=== PATIENT | female | born 1940 | race African-American/Black ===

== ENCOUNTER → 2016-12-02 | Outpatient (CLI) | payer MEDICARE, OTHER ==
[2016-12-02 17:27] LABS: Blood Urea Nitrogen 19 mg/dL (7-17); Non-African American GFR(MDRD) >60 (>60 ml/min/1.73 sqM)
== END | disposition home or self-care (01) ==
LOC: LABWHC1 16:39
PROVIDERS: ATTEND Internal Medicine
DX: Z01.812 Encounter for preprocedural laboratory examination (principal)
CPT/HCPCS: 36415; 82565; 84520

== ENCOUNTER 2016-12-07 11:13 | Emergency (ER) | payer MEDICARE, OTHER ==
[2016-12-07 11:27] VITALS: BP 190/85; PULSE 70; RESP 18; TEMP 97.9
--- NOTE | 2016-12-07 12:46 | ED ---
Fall HPI - General Chief Complaint: Fall Stated Complaint: LEFT SHOULDER INJURY FROM FALL Time Seen by Provider: 12/07/16 11:37 Source: patient, family Mode of arrival: ambulatory - History of Present Illness Initial Comments: Patient is a 76-year-old female with history of osteoarthritis and left rotator cuff repair presenting with left shoulder pain. Patient states she was sleeping on the couch and this morning rolled off falling on her left shoulder. Patient denies any head injury or loss of consciousness. Patient's daughter came over to pick her up for [employer] for which she was complaining of shoulder pain and brought her to the emergency room. Patient did not take anything for the pain prior to arrival. Pain is worse with palpation and movement. Pain is not present with rest. - Related Data Home Medications Medication Instructions Recorded Confirmed amLODIPine [Norvasc] 5 mg PO DAILY 03/21/14 12/07/16 Ergocalciferol (Vitamin D2) 50,000 unit PO WE 12/07/16 12/07/16 [Vitamin D2] Naproxen Sodium [Aleve] 220 mg PO Q12H PRN 12/07/16 12/07/16 Allergies Allergy/AdvReac Type Severity Reaction Status Date / Time cephalexin [Cephalexin] AdvReac Unknown Verified 12/07/16 12:24 iodine AdvReac Unknown Verified 12/07/16 12:24 levofloxacin [From Levaquin] AdvReac Dyspnea Verified 12/07/16 12:24 Penicillins AdvReac Dyspnea Verified 12/07/16 12:24 shellfish derived AdvReac Unknown Verified 12/07/16 12:24 Review of Systems ROS Statement: Those systems with pertinent positive or pertinent negative responses have been documented in the HPI. Constitutional: No fever and no chills. HENT: No congestion, no rhinorrhea and no sore throat. Eyes: No discharge and no redness. Respiratory: No cough and no shortness of breath. Cardiovascular: No chest pain and no palpitations. Gastrointestinal: No nausea, no vomiting, no abdominal pain and no diarrhea. Genitourinary: No dysuria and no hematuria. Musculoskeletal: No back pain and +arthralgias. Skin: No pallor and no rash. Neurological: No dizziness and No headaches. ROS Other: All systems not noted in ROS Statement are negative. Past Medical History Past Medical History: GERD/Reflux, Hyperlipidemia, Hypertension, Osteoarthritis (OA) Additional Past Medical History / Comment(s): lupus, anemia,. Headaches, arthritis History of Any Multi-Drug Resistant Organisms: None Reported Past Surgical History: Hysterectomy, Orthopedic Surgery Additional Past Surgical History / Comment(s): LT ROTATOR CUFF SX Past Anesthesia/Blood Transfusion Reactions: No Reported Reaction Additional Past Anesthesia/Blood Transfusion Reaction / Comment(s): CLAUSTERPHOBIA Past Psychological History: Anxiety Additional Psychological History / Comment(s): Miss Basilio is , she lives independently but has many family members who check on her, including her daughter. Remote history of tobacco use was noted.She has no recent animal exposures. She has no international travels. 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 Smoking Status: Former smoker Past Alcohol Use History: None Reported Additional Past Alcohol Use History / Comment(s): STARTED SMOKING WHEN A TEENAGER SMOKED 1-2 PPD QUIT 2004 Past Drug Use History: None Reported - Past Family History Father Family Medical History: Unable to Obtain Mother Family Medical History: Hypertension General Exam - General Exam Comments Initial Comments: Constitutional: Patient appears well-developed and well-nourished. No distress. Head: Normocephalic and atraumatic. Eyes: Conjunctivae and EOM are normal. Right eye exhibits no discharge. Left eye exhibits no discharge. No scleral icterus. Neck: Normal range of motion. Neck supple. Cardiovascular: Normal rate and regular rhythm. No murmur heard. Pulmonary/Chest: Effort normal and breath sounds normal. No respiratory distress. No wheezes. Abdominal: Soft. No distension. There is no tenderness. There is no rebound and no guarding. Musculoskeletal: Left shoulder anterior tenderness. Range of motion normal but has tenderness. No tenderness to scapula. No tenderness to upper arm or lower arm. Radial, median, ulnar nerve sensation and motor intact. Axillary sensation intact Distal pulses present. Neurological: Patient alert and oriented to person, place, and time. Skin: Skin is warm and dry. Not diaphoretic. Nursing notes and vitals reviewed. Course Vital Signs 12/07/16 11:23 Temperature 97.9 F Pulse Rate 70 Respiratory 18 Rate Blood Pressure 190/85 O2 Sat by Pulse 93 L Oximetry - Reevaluation(s) Reevaluation #1: 12/07/16 13:28 Family updated on results no fracture or dislocation of left shoulder. Patient not requesting anything for pain at this time. Medical Decision Making - Medical Decision Making Patient is a 76-year-old female with history of osteoarthritis including left shoulder rotator cuff repair presenting with left shoulder injury. Patient rolled off her couch earlier today and hit her left shoulder on the ground. No loss of consciousness or head injury. X-rays unremarkable for fracture or dislocation. X-ray does show pretty severe osteoarthritis. Family present and patient had a problem with muscle relaxants as well as narcotic pain medications. Patient would get loopy and fall. They are agreeable to doing Aleve and Tylenol at home. Prior to discharge, patient was resting comfortably in bed. Course of stay stable for outpatient management. Tolerable pain. Discussed physical exam and diagnostic tests with patient. Questions answered and patient is agreeable to discharge with close follow up with Primary Care Physician. Instructed to return to Emergency Department if symptoms worsen. Disposition Clinical Impression: Left shoulder pain Disposition: HOME SELF-CARE Condition: Good Instructions: Fall Prevention for Older Adults (ED), Shoulder Pain (ED) Referrals: Nicho Mahmood MD [Primary Care Provider] - 1-2 days
--- NOTE | 2016-12-07 12:54 | XR ---
Left shoulder HISTORY: Left shoulder pain, fall 3 views of the left shoulder No comparisons Left lung apex as visualized is normal. Bone mineralization is reduced. Joint spaces and alignment ar e maintained. IMPRESSION: No fracture or dislocation.
== END 2016-12-07 13:29 | disposition home or self-care (01) ==
LOC: EC 11:13
DX: M25.512 Pain in left shoulder (principal); W08.XXXA Fall from other furniture, initial encounter; M19.012 Primary osteoarthritis, left shoulder; I10 Essential (primary) hypertension; M32.9 Systemic lupus erythematosus, unspecified; Z79.899 Other long term (current) drug therapy; Z87.891 Personal history of nicotine dependence
CPT/HCPCS: 99284

== ENCOUNTER 2016-12-11 19:26 | Emergency (ER) | payer MEDICARE, OTHER ==
[2016-12-11 19:33] VITALS: RESP 18
--- NOTE | 2016-12-11 21:02 | XR ---
EXAMINATION TYPE: XR Hip Bilateral and AP pelvis DATE OF EXAM: 12/11/2016 8:53 PM COMPARISON: NONE HISTORY: Fell off a couch. Pain. Technique 5 views. FINDINGS: The pelvic ring is intact. Proximal femurs and hip joints are intact. There is mild acetabular spurri ng. Sacroiliac joints are normal. Hip joint spaces are fairly well-maintained. IMPRESSION: Negative pelvis and bilateral hip exam. No fracture.
--- NOTE | 2016-12-11 21:04 | XR ---
EXAMINATION TYPE: XR knee complete bilateral DATE OF EXAM: 12/11/2016 8:53 PM COMPARISON: NONE HISTORY: Fell off the couch. Pain. TECHNIQUE: 6 views FINDINGS: I see no fracture nor dislocation. There is no sign of knee joint effusion. Joint spaces ar e fairly normal. IMPRESSION: Negative bilateral knee exam.
[2016-12-11 22:17] VITALS: BP 194/89; PULSE 90; TEMP 97.7
--- NOTE | 2016-12-11 22:24 | ED ---
General Adult HPI - General Chief complaint: Extremity Injury, Lower Stated complaint: pelvic & leg pain Time Seen by Provider: 12/11/16 19:47 Source: patient, family Mode of arrival: wheelchair Limitations: no limitations - History of Present Illness Initial comments: 76-year-old -[place] female presented for evaluation of pubic bone pain since a fall on Thursday. She states that she was evaluated at this facility but the majority of her pain was in her left shoulder and no imaging was performed of the pelvis. Since that time she has had increasing pain to the [place] primarily in the pubic bone area that is caused her to ambulate less frequently due to the pain. Pain does not lateralize. There is no saddle anesthesia, lower extremity weakness, back pain, overflow incontinence, or bowel incontinence. - Related Data Home Medications Medication Instructions Recorded Confirmed amLODIPine [Norvasc] 5 mg PO DAILY 03/21/14 12/11/16 Ergocalciferol (Vitamin D2) 50,000 unit PO WE 12/07/16 12/11/16 [Vitamin D2] Naproxen Sodium [Aleve] 220 mg PO Q12H PRN 12/07/16 12/11/16 Previous Rx's Medication Instructions Recorded Ibuprofen [Motrin] 800 mg PO Q8HR PRN #20 tab 12/11/16 Allergies Allergy/AdvReac Type Severity Reaction Status Date / Time cephalexin [Cephalexin] AdvReac Unknown Verified 12/11/16 19:37 iodine AdvReac Unknown Verified 12/11/16 19:37 levofloxacin [From Levaquin] AdvReac Dyspnea Verified 12/11/16 19:37 Penicillins AdvReac Dyspnea Verified 12/11/16 19:37 shellfish derived AdvReac Unknown Verified 12/11/16 19:37 Review of Systems ROS Statement: Those systems with pertinent positive or pertinent negative responses have been documented in the HPI. ROS Other: All systems not noted in ROS Statement are negative. Constitutional: Denies: fever, chills Eyes: Denies: eye pain, eye discharge ENT: Denies: ear pain, throat pain Respiratory: Denies: cough, dyspnea Cardiovascular: Denies: chest pain, palpitations Endocrine: Reports: fatigue. Denies: polydipsia, polyuria Gastrointestinal: Denies: abdominal pain, nausea, vomiting Genitourinary: Denies: urgency, dysuria Musculoskeletal: Reports: other (Pubic bone pain with decreased ambulation). Denies: back pain Skin: Denies: rash, lesions Neurological: Denies: headache, weakness Psychiatric: Denies: anxiety, depression Past Medical History Past Medical History: GERD/Reflux, Hyperlipidemia, Hypertension, Osteoarthritis (OA) Additional Past Medical History / Comment(s): lupus, anemia,. Headaches, arthritis History of Any Multi-Drug Resistant Organisms: None Reported Past Surgical History: Hysterectomy, Orthopedic Surgery Additional Past Surgical History / Comment(s): LT ROTATOR CUFF SX Past Anesthesia/Blood Transfusion Reactions: No Reported Reaction Additional Past Anesthesia/Blood Transfusion Reaction / Comment(s): CLAUSTERPHOBIA Past Psychological History: Anxiety Additional Psychological History / Comment(s): Miss Basilio is , she lives independently but has many family members who check on her, including her daughter. Remote history of tobacco use was noted.She has no recent animal exposures. She has no international travels. 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 Smoking Status: Former smoker Past Alcohol Use History: None Reported Additional Past Alcohol Use History / Comment(s): STARTED SMOKING WHEN A TEENAGER SMOKED 1-2 PPD QUIT 2004 Past Drug Use History: None Reported - Past Family History Father Family Medical History: Unable to Obtain Mother Family Medical History: Hypertension General Exam Limitations: no limitations General appearance: alert, in no apparent distress Head exam: Present: atraumatic, normocephalic Eye exam: Present: normal appearance, EOMI ENT exam: Present: normal exam, normal oropharynx, mucous membranes moist Neck exam: Present: normal inspection. Absent: tenderness Respiratory exam: Present: normal lung sounds bilaterally. Absent: respiratory distress, wheezes Cardiovascular Exam: Present: regular rate, normal rhythm GI/Abdominal exam: Present: soft. Absent: distended, tenderness, guarding Rectal exam: Present: deferred Extremities exam: Present: normal inspection, full ROM, other (No tenderness to palpation on the pubic bones or pubic symphysis.) Back exam: Present: normal inspection, full ROM Neurological exam: Present: alert, oriented X3 Psychiatric exam: Present: normal affect, normal mood Skin exam: Present: warm, dry, intact Course Vital Signs 12/11/16 12/11/16 19:31 22:15 Temperature 98.7 F 97.7 F Pulse Rate 76 90 Respiratory 18 18 Rate Blood Pressure 179/77 194/89 O2 Sat by Pulse 97 97 Oximetry Medical Decision Making - Medical Decision Making 76-year-old -[place] female presented for evaluation of acute bone pain since a fall on Thursday. She states that she came to this facility for evaluation after the fall but the majority of her pain was in her left shoulder and no imaging was done the pelvis. Since that time she has had decreased in relation due to the pain other she remains able to bear weight. There is no saddle anesthesia, lower back pain, lower extremity weakness, urinary overflow incontinence, or bowel incontinence. On physical examination there is no tenderness to palpation and there is no asymmetry in leg length. Neuro exam is normal. Imaging is negative for any acute fractures. The patient was assisted out of the bed and observed ambulating in the hallway with minimal assistance. The patient and family were informed that she would be discharged with instructions to follow-up with her primary care physician's. She was also informed that she will be given a prescription for anti-inflammatories. She was further advised to return to this facility if her symptoms should worsen or persist. The patient acknowledged an understanding of this information and agreed with this plan of care. Disposition Clinical Impression: Hip pain, bilateral Disposition: HOME SELF-CARE Condition: Stable Instructions: Hip Contusion (ED) Additional Instructions: Please use medication as discussed. Please follow up with family doctor if symptoms have not improved over the next two days. Please return to the emergency room if your symptoms increase or worsen or for any other concerns. Prescriptions: Ibuprofen [Motrin] 800 mg PO Q8HR PRN #20 tab PRN Reason: Analgesia Referrals: Nicho Mahmood MD [Primary Care Provider] - 1-2 days Time of Disposition: 22:24
== END 2016-12-11 22:30 | disposition home or self-care (01) ==
LOC: EC 19:26
DX: M25.552 Pain in left hip (principal); M25.551 Pain in right hip; W19.XXXA Unspecified fall, initial encounter; I10 Essential (primary) hypertension; Z79.899 Other long term (current) drug therapy; Z88.8 Allergy status to other drugs, medicaments and biological substances; Z88.1 Allergy status to other antibiotic agents; Z88.0 Allergy status to penicillin; Z91.013 Allergy to seafood; Z87.891 Personal history of nicotine dependence
CPT/HCPCS: 73521; 99283

== ENCOUNTER 2018-01-06 18:13 | Emergency (ER) | payer MEDICARE, OTHER ==
--- NOTE | 2018-01-06 18:44 | ED ---
General Adult HPI - General Chief complaint: Extremity Injury, Lower Stated complaint: KNEE PAIN Time Seen by Provider: 01/06/18 18:23 Source: patient, RN notes reviewed Mode of arrival: ambulatory Limitations: no limitations - History of Present Illness Initial comments: Patient 77-year-old female who presents emergency room today with a chief complaint of a fall that occurred yesterday. She states she got tangled up fell down onto the right hip. Patient admits to some pain locally to the right hip area and also the lower back. She states worse with certain movements. She denies any other complaints or symptoms. States she has been able to ambulate. Denies any head injury or loss consciousness. Patient denies any recent fever, chills, shortness of breath, chest pain, abdominal pain, nausea or vomiting, numbness or tingling, headaches or visual changes, or any other complaints. - Related Data Home Medications Medication Instructions Recorded Confirmed amLODIPine [Norvasc] 5 mg PO DAILY 03/21/14 12/11/16 Ergocalciferol (Vitamin D2) 50,000 unit PO WE 12/07/16 12/11/16 [Vitamin D2] Naproxen Sodium [Aleve] 220 mg PO Q12H PRN 12/07/16 12/11/16 Previous Rx's Medication Instructions Recorded Ibuprofen [Motrin] 800 mg PO Q8HR PRN #20 tab 12/11/16 Allergies Allergy/AdvReac Type Severity Reaction Status Date / Time cephalexin [Cephalexin] AdvReac Unknown Verified 12/11/16 19:37 iodine AdvReac Unknown Verified 12/11/16 19:37 levofloxacin [From Levaquin] AdvReac Dyspnea Verified 12/11/16 19:37 Penicillins AdvReac Dyspnea Verified 12/11/16 19:37 shellfish derived AdvReac Unknown Verified 12/11/16 19:37 Review of Systems ROS Statement: Those systems with pertinent positive or pertinent negative responses have been documented in the HPI. ROS Other: All systems not noted in ROS Statement are negative. Past Medical History Past Medical History: GERD/Reflux, Hyperlipidemia, Hypertension, Osteoarthritis (OA) Additional Past Medical History / Comment(s): lupus, anemia,. Headaches, arthritis History of Any Multi-Drug Resistant Organisms: None Reported Past Surgical History: Hysterectomy, Orthopedic Surgery Additional Past Surgical History / Comment(s): LT ROTATOR CUFF SX Past Anesthesia/Blood Transfusion Reactions: No Reported Reaction Additional Past Anesthesia/Blood Transfusion Reaction / Comment(s): CLAUSTERPHOBIA Past Psychological History: Anxiety Smoking Status: Former smoker Past Alcohol Use History: None Reported Past Drug Use History: None Reported - Past Family History Father Family Medical History: Unable to Obtain Mother Family Medical History: Hypertension General Exam - General Exam Comments Initial Comments: General: The patient is awake and alert, in no distress, and does not appear acutely ill. Eye: Pupils are equal, round and reactive to light, extra-ocular movements are intact. No nystagmus. There is normal conjunctiva bilaterally. No signs of icterus. Ears, nose, mouth and throat: There are moist mucous membranes and no oral lesions. Neck: The neck is supple, there is no tenderness or JVD. Cardiovascular: There is a regular rate and rhythm. No murmur, rub or gallop is appreciated. Respiratory: Lungs are clear to auscultation, respirations are non-labored, breath sounds are equal. No wheezes, stridor, rales, or rhonchi. Musculoskeletal: Normal ROM. Patient is able ambulate. She shows good range of motion. Patient has normal appearance of thoracic and lumbar spine with no step-off. Mild tenderness lower lumbar. Mild tenderness over the lateral aspect of the right hip. Strength 5/5. Sensation intact. Pulses equal bilaterally 2+. Neurological: A&O x 3. CN II-XII intact, There are no obvious motor or sensory deficits. Coordination appears grossly intact. Speech is normal. Skin: Skin is warm and dry and no rashes or lesions are noted. Psychiatric: Cooperative, appropriate mood & affect, normal judgment. Limitations: no limitations Course Vital Signs 01/06/18 01/06/18 18:17 19:35 Temperature 96.5 F L Pulse Rate 63 97 Respiratory 16 18 Rate Blood Pressure 153/81 148/84 O2 Sat by Pulse 97 Oximetry Medical Decision Making - Medical Decision Making Patient x-rays reviewed showing no acute fracture dislocation. Patient is able to ambulate here in the emergency room will be discharged home advised follow- up in 7-10 days if symptoms persist for repeat x-ray. Disposition Clinical Impression: Fall, Acute low back pain, Hip pain, right Disposition: HOME SELF-CARE Condition: Good Instructions: Arthralgia (ED) Additional Instructions: Please follow-up the family doctor in the next 7-10 days if symptoms persist for repeat x-rays as discussed. Please return to emergency room for any other concerns. Referrals: Nicho Mahmood MD [Primary Care Provider] - 1-2 days Time of Disposition: 19:41
--- NOTE | 2018-01-06 19:34 | XR ---
PROCEDURE: XR Hip Limited RT 2 views DATE AND TIME: 01/06/2018 6:54 PM REFERRING PHYSICIAN: Adolph Phoenix CLINICAL INDICATION: PHH, Pain TECHNIQUE: Coned AP and frog-leg lateral. COMPARISON: 12/11/2016 FINDINGS: There is no fracture or malalignment. The soft tissues are unremarkable. IMPRESSION: NO ACUTE PROCESS.
--- NOTE | 2018-01-06 19:35 | XR ---
PROCEDURE: XR lumbar spine - 3V DATE AND TIME: 01/06/2018 6:54 PM REFERRING PHYSICIAN: Adolph Phoenix CLINICAL INDICATION: PHH, Pain TECHNIQUE: Department protocol. COMPARISON: 02/12/2016 FINDINGS: There is no fracture or malalignment. Moderate multilevel spondylosis changes are appreciat ed. The soft tissues are unremarkable. IMPRESSION: NO ACUTE PROCESS.
[2018-01-06 19:36] VITALS: BP 148/84; PULSE 97; RESP 18
[2018-01-06 19:53] VITALS: TEMP 98.6
== END 2018-01-06 19:53 | disposition home or self-care (01) ==
LOC: EC 18:13
DX: M54.5 Low back pain (principal); M25.551 Pain in right hip; I10 Essential (primary) hypertension; M19.90 Unspecified osteoarthritis, unspecified site; Z87.891 Personal history of nicotine dependence; Z79.899 Other long term (current) drug therapy; Z88.1 Allergy status to other antibiotic agents; Z91.048 Other nonmedicinal substance allergy status; Z88.0 Allergy status to penicillin; Z91.013 Allergy to seafood; W01.0XXA Fall on same level from slipping, tripping and stumbling without subsequent striking against object, initial encounter; Y92.009 Unspecified place in unspecified non-institutional (private) residence as the place of occurrence of the external cause
CPT/HCPCS: 72100; 73501; 99283

== ENCOUNTER 2018-04-08 19:44 | Emergency (ER) | payer MEDICARE, OTHER ==
[2018-04-08] MEDS ORDERED: ONDANSETRON 4 MG/2 ML VIAL IVP STA (20:37)
[2018-04-08] MEDS ORDERED: PANTOPRAZOLE 40 MG/10 ML VIAL IVP STA (20:37)
--- NOTE | 2018-04-08 20:43 | ED ---
General Adult HPI - General Chief complaint: Abdominal Pain Stated complaint: Abdominal pain Time Seen by Provider: 04/08/18 20:08 Source: patient, family, EMS, RN notes reviewed Mode of arrival: EMS Limitations: altered mental status - History of Present Illness Initial comments: Patient is a pleasant 77-year-old female presenting to the emergency department [facility] and family believe she is not adjusting well. Accuracy of history is unclear. Patient states she does have some abdominal discomfort. Symptoms have been present for close to a year however may be worse over the past week. Patient believes she may have been vomiting some blood or had some blood with bowel movements. Patient had an episode today where she became very nauseated and felt like she was going to pass out. Patient denies ever losing consciousness. Patient denies chest pain. Patient does admit to having some shortness of breath. Patient is unclear how long this has gone on for. Patient does have a history of lupus and is on Plaquenil. Family states patient has been on Plaquenil longer than normal and questions if this could be causing her abdominal discomfort. - Related Data Home Medications Medication Instructions Recorded Confirmed amLODIPine [Norvasc] 5 mg PO DAILY 03/21/14 04/08/18 Bisacodyl [Dulcolax] 10 mg RECTAL DAILY PRN 04/08/18 04/08/18 Donepezil [Aricept] 10 mg PO HS 04/08/18 04/08/18 Ensure Clear 1 can PO W/BRKFST 04/08/18 04/08/18 Hydroxychloroquine Sulfate 200 mg PO BID@0800,1700 04/08/18 04/08/18 [Plaquenil] Magnesium Hydroxide [Milk of 2,400 mg PO DAILY PRN 04/08/18 04/08/18 Magnesia Concentrate] Multivitamins, Thera [Multivitamin 1 tab PO DAILY 04/08/18 04/08/18 (formulary)] Na Phos,M-B/Na Phos,Di-Ba [Fleet 133 ml RECTAL ONCE PRN 04/08/18 04/08/18 Adult] Omeprazole [PriLOSEC] 20 mg PO DAILY PRN 04/08/18 04/08/18 Allergies Allergy/AdvReac Type Severity Reaction Status Date / Time cephalexin [Cephalexin] AdvReac Unknown Verified 12/11/16 19:37 doxycycline AdvReac Unknown Verified 04/08/18 19:59 iodine AdvReac Unknown Verified 12/11/16 19:37 levofloxacin [From Levaquin] AdvReac Dyspnea Verified 12/11/16 19:37 Penicillins AdvReac Dyspnea Verified 12/11/16 19:37 shellfish derived AdvReac Unknown Verified 12/11/16 19:37 Review of Systems ROS Statement: Those systems with pertinent positive or pertinent negative responses have been documented in the HPI. ROS Other: All systems not noted in ROS Statement are negative. Constitutional: Denies: fever Eyes: Denies: eye pain ENT: Denies: ear pain Respiratory: Reports: dyspnea Cardiovascular: Denies: chest pain Endocrine: Reports: fatigue Gastrointestinal: Reports: abdominal pain, nausea, vomiting Genitourinary: Denies: dysuria Skin: Denies: lesions Neurological: Denies: headache Past Medical History Past Medical History: GERD/Reflux, Hyperlipidemia, Hypertension, Osteoarthritis (OA) Additional Past Medical History / Comment(s): lupus, anemia,. Headaches, arthritis History of Any Multi-Drug Resistant Organisms: None Reported Past Surgical History: Hysterectomy, Orthopedic Surgery Additional Past Surgical History / Comment(s): LT ROTATOR CUFF SX Past Anesthesia/Blood Transfusion Reactions: No Reported Reaction Additional Past Anesthesia/Blood Transfusion Reaction / Comment(s): CLAUSTERPHOBIA Past Psychological History: Anxiety Smoking Status: Former smoker Past Alcohol Use History: None Reported Past Drug Use History: None Reported - Past Family History Father Family Medical History: Unable to Obtain Mother Family Medical History: Hypertension General Exam Limitations: altered mental status General appearance: alert, in no apparent distress Head exam: Present: atraumatic Eye exam: Present: normal appearance, PERRL, EOMI ENT exam: Present: normal oropharynx Neck exam: Present: normal inspection Respiratory exam: Present: normal lung sounds bilaterally. Absent: respiratory distress, wheezes Cardiovascular Exam: Present: tachycardia GI/Abdominal exam: Present: soft. Absent: tenderness Extremities exam: Present: normal inspection. Absent: pedal edema, calf tenderness Neurological exam: Present: alert, CN II-XII intact. Absent: motor sensory deficit Expanded Neurological exam: Present: protecting the airway Speech: Present: fluid speech Cranial nerves: EOM's Intact: Normal Motor strength exam: RUE: 5, LUE: 5, RLE: 5, LLE: 5 Eye Response: (4) open spontaneously Motor Response: (6) obeys commands Verbal Response: (5) oriented Psychiatric exam: Present: normal affect, normal mood Skin exam: Present: normal color Course Vital Signs 04/08/18 04/08/18 04/08/18 19:57 21:38 23:39 Temperature 97.0 F L 99.2 F Pulse Rate 112 H 105 H 103 H Respiratory 24 18 20 Rate Blood Pressure 172/84 148/67 155/73 O2 Sat by Pulse 100 100 100 Oximetry EKG Findings - EKG Comments: EKG Findings:: Sinus cardia 110. OR 162. QRS 98. QT 332. QTC 449. Normal axis. Incomplete right bundle-branch block. Nonspecific ST-T. Motion artifact is present. Medical Decision Making - Medical Decision Making Patient reevaluated and resting comfortably in bed. Case was earlier discussed with Dr. Mccabe who did not feel patient would necessitate admission. Family is comfortable with discharge home. Family and patient are updated on results and need for follow-up. - Lab Data Result diagrams: 04/08/18 20:50 04/08/18 20:50 Lab Results 04/08/18 04/08/18 04/08/18 Range/Units 20:50 20:50 20:50 WBC 8.7 (3.8-10.6) k/uL RBC 4.64 (3.80-5.40) m/uL Hgb 12.2 (11.4-16.0) gm/dL Hct 38.3 (34.0-46.0) % MCV 82.4 (80.0-100.0) fL MCH 26.4 (25.0-35.0) pg MCHC 32.0 (31.0-37.0) g/dL RDW 14.7 (11.5-15.5) % Plt Count 203 (150-450) k/uL Neutrophils % 81 % Lymphocytes % 9 % Monocytes % 7 % Eosinophils % 0 % Basophils % 0 % Neutrophils # 7.0 (1.3-7.7) k/uL Lymphocytes # 0.8 L (1.0-4.8) k/uL Monocytes # 0.6 (0-1.0) k/uL Eosinophils # 0.0 (0-0.7) k/uL Basophils # 0.0 (0-0.2) k/uL PT (9.0-12.0) sec INR (<1.2) APTT (22.0-30.0) sec D-Dimer (<0.60) mg/L FEU Sodium 141 (137-145) mmol/L Potassium 3.9 (3.5-5.1) mmol/L Chloride 105 (98-107) mmol/L Carbon Dioxide 22 (22-30) mmol/L Anion Gap 14 mmol/L BUN 20 H (7-17) mg/dL Creatinine 0.72 (0.52-1.04) mg/dL Est GFR (CKD-EPI)AfAm >90 (>60 ml/min/1.73 sqM) Est GFR (CKD-EPI)NonAf 82 (>60 ml/min/1.73 sqM) Glucose 126 H (74-99) mg/dL Calcium 9.2 (8.4-10.2) mg/dL Total Bilirubin 0.7 (0.2-1.3) mg/dL AST 26 (14-36) U/L ALT 26 (9-52) U/L Alkaline Phosphatase 83 (38-126) U/L Total Creatine Kinase 154 H (30-135) U/L CK-MB (CK-2) 1.4 (0.0-2.4) ng/mL CK-MB (CK-2) Rel Index 0.9 Troponin I <0.012 (0.000-0.034) ng/mL Total Protein 7.5 (6.3-8.2) g/dL Albumin 4.1 (3.5-5.0) g/dL Amylase 87 (30-110) U/L Lipase 92 (23-300) U/L Urine Color Urine Appearance (Clear) Urine pH (5.0-8.0) Ur Specific [place] (1.001-1.035) Urine Protein (Negative) Urine Glucose (UA) (Negative) Urine Ketones (Negative) Urine Blood (Negative) Urine Nitrite (Negative) Urine Bilirubin (Negative) Urine Urobilinogen (<2.0) mg/dL Ur Leukocyte Esterase (Negative) Stool Occult Blood (Negative) 04/08/18 04/08/18 04/08/18 Range/Units 20:50 21:03 21:51 WBC (3.8-10.6) k/uL RBC (3.80-5.40) m/uL Hgb (11.4-16.0) gm/dL Hct (34.0-46.0) % MCV (80.0-100.0) fL MCH (25.0-35.0) pg MCHC (31.0-37.0) g/dL RDW (11.5-15.5) % Plt Count (150-450) k/uL Neutrophils % % Lymphocytes % % Monocytes % % Eosinophils % % Basophils % % Neutrophils # (1.3-7.7) k/uL Lymphocytes # (1.0-4.8) k/uL Monocytes # (0-1.0) k/uL Eosinophils # (0-0.7) k/uL Basophils # (0-0.2) k/uL PT 10.7 (9.0-12.0) sec INR 1.1 (<1.2) APTT 20.7 L (22.0-30.0) sec D-Dimer 0.36 (<0.60) mg/L FEU Sodium (137-145) mmol/L Potassium (3.5-5.1) mmol/L Chloride (98-107) mmol/L Carbon Dioxide (22-30) mmol/L Anion Gap mmol/L BUN (7-17) mg/dL Creatinine (0.52-1.04) mg/dL Est GFR (CKD-EPI)AfAm (>60 ml/min/1.73 sqM) Est GFR (CKD-EPI)NonAf (>60 ml/min/1.73 sqM) Glucose (74-99) mg/dL Calcium (8.4-10.2) mg/dL Total Bilirubin (0.2-1.3) mg/dL AST (14-36) U/L ALT (9-52) U/L Alkaline Phosphatase (38-126) U/L Total Creatine Kinase (30-135) U/L CK-MB (CK-2) (0.0-2.4) ng/mL CK-MB (CK-2) Rel Index Troponin I (0.000-0.034) ng/mL Total Protein (6.3-8.2) g/dL Albumin (3.5-5.0) g/dL Amylase (30-110) U/L Lipase (23-300) U/L Urine Color Yellow Urine Appearance Clear (Clear) Urine pH 5.5 (5.0-8.0) Ur Specific [place] 1.013 (1.001-1.035) Urine Protein Trace H (Negative) Urine Glucose (UA) Trace H (Negative) Urine Ketones 2+ H (Negative) Urine Blood Negative (Negative) Urine Nitrite Negative (Negative) Urine Bilirubin Negative (Negative) Urine Urobilinogen <2.0 (<2.0) mg/dL Ur Leukocyte Esterase Negative (Negative) Stool Occult Blood Negative (Negative) - Radiology Data Radiology results: report reviewed (Computed tomography scan of the abdomen pelvis shows no acute abnormality. Slight prominence of the pancreatic duct probably related to old inflammatory disease.), image reviewed (KUB shows no acute process. Chest x-ray shows COPD and pulmonary fibrosis) Disposition Clinical Impression: Near syncope Disposition: HOME SELF-CARE Condition: Stable Instructions: Near Syncope (ED) Additional Instructions: Please follow-up with primary care physician in the next day or 2 for recheck. Return for passing out, bleeding, abdominal pain, breathing problems, worsening symptoms or other concerns. Is patient prescribed a controlled substance at d/c from ED?: No Referrals: Nicho Mahmood MD [Primary Care Provider] - 1-2 days Time of Disposition: 23:50
[2018-04-08 21:15] LABS: Basophils % (A) 0 %; Eosinophils % (A) 0 %; HCT 38.3 % (34.0-46.0); HGB 12.2 gm/dL (11.4-16.0); Lymphocytes # (A) 0.8 k/uL (1.0-4.8); Lymphocytes % (A) 9 %; MCH 26.4 pg (25.0-35.0); MCV 82.4 fL (80.0-100.0); Monocytes # (A) 0.6 k/uL (0-1.0); Monocytes % (A) 7 %; Neutrophils % (A) 81 %; Platelet Count 203 k/uL (150-450); RBC 4.64 m/uL (3.80-5.40); RDW 14.7 % (11.5-15.5); WBC 8.7 k/uL (3.8-10.6)
[2018-04-08 21:16] LABS: ALT 26 U/L (9-52); AST 26 U/L (14-36); Albumin 4.1 g/dL (3.5-5.0); Alkaline Phosphatase 83 U/L (38-126); Amylase 87 U/L (30-110); Anion Gap 14 mmol/L; Blood Urea Nitrogen 20 mg/dL (7-17); Calcium 9.2 mg/dL (8.4-10.2); Carbon Dioxide 22 mmol/L (22-30); Chloride 105 mmol/L (98-107); Glucose 126 mg/dL (74-99); Lipase 92 U/L (23-300); Potassium 3.9 mmol/L (3.5-5.1); Sodium 141 mmol/L (137-145); Total Bilirubin 0.7 mg/dL (0.2-1.3); Total Protein 7.5 g/dL (6.3-8.2)
--- NOTE | 2018-04-08 21:28 | XR ---
EXAMINATION TYPE: XR chest 2V DATE OF EXAM: 04/08/2018 COMPARISON: 03/28/2014 HISTORY: Syncope TECHNIQUE: Frontal and lateral views of the chest are obtained. FINDINGS: There is some coarsening of interstitial markings. There is no heart failure nor confluent pneumonic infiltrate. There are chest leads. Thoracic aorta is atheromatous. There is flattening of the diaphragm. IMPRESSION: COPD and pulmonary fibrosis. No change.
[2018-04-08 21:29] LABS: D-Dimer 0.36 mg/L FEU (<0.60); INR 1.1 (<1.2); Prothrombin Time 10.7 sec (9.0-12.0)
--- NOTE | 2018-04-08 21:29 | XR ---
EXAMINATION TYPE: XR KUB DATE OF EXAM: 04/08/2018 COMPARISON: NONE HISTORY: Abdominal pain TECHNIQUE: Supine and upright views FINDINGS: There is no sign of intestinal obstruction or pneumoperitoneum. Fecal pattern is normal. Jasmin ng bases are clear. There are no definite pathologic calcifications over the kidneys. There is some c alcified granulomata in the spleen. There are some right upper quadrant calcifications. IMPRESSION: Nonacute abdomen. No definite renal calculus.
[2018-04-08 21:31] LABS: Creatine Kinase 154 U/L (30-135); Partial Thromboplastin Time 20.7 sec (22.0-30.0)
[2018-04-08] MEDS ORDERED: diphenhydrAMINE 50 MG/ML 1 ML VIAL IVP STA (21:41)
[2018-04-08] MEDS ORDERED: FAMOTIDINE 20 MG/2 ML VIAL IV STA (21:41)
[2018-04-08] MEDS ORDERED: methylPREDNISolone SOD SUCCI 125 MG/2 ML VIAL IV STA (21:41)
[2018-04-08 21:45] LABS: Creatine Kinase MB 1.4 ng/mL (0.0-2.4); Troponin I <0.012 ng/mL (0.000-0.034)
[2018-04-08 22:02] LABS: Appearance,Urine Clear (Clear); Bilirubin,Urine Negative (Negative); Blood,Urine Negative (Negative); Color,Urine Yellow; Glucose,Urine (UA) Trace (Negative); Ketones,Urine 2+ (Negative); Leukocyte Esterase,Urine Negative (Negative); Nitrite,Urine Negative (Negative); PH, Urine 5.5 (5.0-8.0); Protein,Urine Trace (Negative); Specific Gravity,Urine 1.013 (1.001-1.035); Urobilinogen,Urine <2.0 mg/dL (<2.0)
--- NOTE | 2018-04-08 23:09 | CT ---
EXAMINATION TYPE: CT abdomen pelvis w con DATE OF EXAM: 04/08/2018 COMPARISON: NONE HISTORY: Epigastric pain. Poor historian. CT DLP: 536 mGycm Automated exposure control for dose reduction was used. TECHNIQUE: Helical acquisition of images was performed from the lung bases through the pelvis. CONTRAST: Performed without Oral Contrast and with IV Contrast, patient injected with 80ml mL of Isovue 300. FINDINGS: Lung bases are clear of consolidation. There is mild interstitial density at the lung bases. There is no pleural effusion. Abdominal aorta is atheromatous. There is no pericardial effusion. There are numerous calcified splenic granulomata. There are calcifi ed small hepatic granulomata. Bile ducts are not dilated. Gallbladder appears normal. There is no tony creatic mass. There is slight prominence of the pancreatic duct. There is no adrenal mass. Kidneys show satisfactory contrast opacification. There is no hydronephrosi s. Ureters are not dilated. Abdominal aorta is atheromatous. There is no retroperitoneal adenopathy. Bladder distends smoothly. I see no intestinal wall thickening. There are no dilated loops. There is no ascites. There is no evidence of a pelvic mass. Uterus is retroverted. Lumbar spine is intact. Danuta endix is not seen. There is no sign of appendicitis. IMPRESSION: NO SIGN OF ACUTE ABDOMEN AND PELVIS. HEALED GRANULOMATOUS DISEASE. SLIGHT PROMINENCE OF THE PANCREATIC DUCT PROBABLY RELATES TO OLD INFLAMMATORY DISEASE. ATHEROSCLEROTI C VASCULAR DISEASE.
[2018-04-08 23:39] VITALS: RESP 20; TEMP 99.2
[2018-04-09 00:22] VITALS: BP 148/68; PULSE 110
== END 2018-04-09 00:21 | disposition home or self-care (01) ==
LOC: EC 19:44
DX: R55 Syncope and collapse (principal); R10.9 Unspecified abdominal pain; R06.02 Shortness of breath; K21.9 Gastro-esophageal reflux disease without esophagitis; I10 Essential (primary) hypertension; Z87.891 Personal history of nicotine dependence; Z79.899 Other long term (current) drug therapy; Z88.1 Allergy status to other antibiotic agents; Z91.048 Other nonmedicinal substance allergy status; Z88.0 Allergy status to penicillin; Z91.013 Allergy to seafood
CPT/HCPCS: 36415; 93005; 85379; 80053; 82150; 82550; 82553; 83690; 84484; 85025; 85610; 85730; 82272; 81003; 71046; 74018; 74177; 99285; 96374; 96375 ×4; J1200; J2930; J2405; C9113; Q9967

== ENCOUNTER 2020-05-29 13:09 | Inpatient (IN) | payer MEDICARE, OTHER ==
[2020-05-29] MEDS ORDERED: FAMOTIDINE 20 MG/2 ML VIAL IV STA (13:20)
[2020-05-29] MEDS ORDERED: methylPREDNISolone SOD SUCCI 125 MG/2 ML VIAL IV STA (13:20)
[2020-05-29] MEDS ORDERED: diphenhydrAMINE 50 MG/ML 1 ML VIAL IVP STA (13:20)
--- NOTE | 2020-05-29 13:25 | ED ---
Altered Mental Status HPI - General Stated Complaint: stroke symptoms Time Seen by Provider: 05/29/20 13:40 - History of Present Illness Initial Comments: Patient is a 79 year old female with past history of vascular dementia, lupus, rheumatoid arthritis presents to the emergency room with reported altered mental status. She is a transfer from [facility]. Report from EMS was that the patient was her normal self this morning. She is able to feed herself. Last known well was around 10:30. The nurse then entered the patient's room to past medications around 1:00 and found her altered. They thought that the patient had weakness on her left side as well as facial droop. The patient was only alert to able to the light. No history of CVA. The remainder of the HPI was limited from EMS. Daughter does arrive to her facility and further history is obtained from her. She states that her mother has been significantly declining over the past month. She had acute kidney injury diagnosed within the past week. IV was established the patient was given some fluids. She has had very poor by mouth intake and has stopped ambulating on her own. Upon hospital arrival the patient has full use of her upper extremity. Does have weakness in her bilateral lower externally. She is alert and oriented 3. No recent illnesses. No fevers. Patient denies any chest pain or shortness of breath. No numbness, tingling or weakness in her extremity. Remainder of HPI is limited because patient's current state - Related Data Home Medications Medication Instructions Recorded Confirmed Donepezil [Aricept] 10 mg PO DAILY@0800 04/08/18 05/29/20 Ensure Clear 1 can PO BID 04/08/18 05/29/20 Magnesium Hydroxide [Milk of 7,200 mg PO Q48H PRN 04/08/18 05/29/20 Magnesia Concentrate] Multivitamins, Thera [Multivitamin 1 tab PO DAILY@0800 04/08/18 05/29/20 (formulary)] Na Phos,M-B/Na Phos,Di-Ba [Fleet 133 ml RECTAL ONCE PRN 04/08/18 05/29/20 Adult] bisacodyL [Dulcolax] 10 mg RECTAL DAILY PRN 04/08/18 05/29/20 Acetaminophen Tab [Tylenol] 650 mg PO Q4H PRN 05/29/20 05/29/20 Calcium Carbonate [Tums] 500 mg PO BID PRN 05/29/20 05/29/20 Cholecalciferol [Vitamin D3 (25 2,000 unit PO DAILY@0805/29/20 05/29/20 Mcg = 1000 Iu)] Famotidine [Pepcid] 20 mg PO DAILY@0800 05/29/20 05/29/20 Loperamide HCl [Imodium A-D] 2 - 4 mg PO TID PRN MDD 4 TABS 05/29/20 05/29/20 Losartan/Hydrochlorothiazide 1 tab PO DAILY@79905/29/20 05/29/20 [Losartan-Hctz 100-12.5 mg Tab] Menthol [Biofreeze] 1 applic TOPICAL Q8H PRN 05/29/20 05/29/20 Metoclopramide HCl [Reglan] 5 mg PO AC-TID 05/29/20 05/29/20 Mirtazapine 7.5 mg PO HS@2100 05/29/20 05/29/20 Potassium Chloride [Klor-Con 10] 10 meq PO DAILY@1700 05/29/20 05/29/20 Sodium Chloride [Saline Nasal 2 spray EA NOSTRIL 05/29/20 05/29/20 [place]] TID@0800,1200,1700 carvediloL [Coreg] 6.25 mg PO BID@0800,1700 05/29/20 05/29/20 guaiFENesin [guaiFENesin Oral 200 mg PO Q4H PRN 05/29/20 05/29/20 Solution] Allergies Allergy/AdvReac Type Severity Reaction Status Date / Time cephalexin [Cephalexin] Allergy Unknown Verified 05/29/20 13:54 doxycycline Allergy Unknown Verified 05/29/20 13:54 iodine Allergy Unknown Verified 05/29/20 13:54 shellfish derived Allergy Unknown Verified 05/29/20 13:54 levofloxacin [From Levaquin] AdvReac Dyspnea Verified 05/29/20 13:54 Penicillins AdvReac Dyspnea Verified 05/29/20 13:54 monohydrate Allergy Unknown Uncoded 05/29/20 13:54 Review of Systems ROS Statement: Those systems with pertinent positive or pertinent negative responses have been documented in the HPI. ROS Other: All systems not noted in ROS Statement are negative. Past Medical History Past Medical History: GERD/Reflux, Hyperlipidemia, Hypertension, Osteoarthritis (OA) Additional Past Medical History / Comment(s): lupus, anemia,. Headaches, arthritis History of Any Multi-Drug Resistant Organisms: None Reported Past Surgical History: Hysterectomy, Orthopedic Surgery Additional Past Surgical History / Comment(s): LT ROTATOR CUFF SX Past Anesthesia/Blood Transfusion Reactions: No Reported Reaction Additional Past Anesthesia/Blood Transfusion Reaction / Comment(s): CLAUSTERPHOBIA Past Psychological History: Anxiety Past Alcohol Use History: None Reported Past Drug Use History: None Reported - Past Family History Father Family Medical History: Unable to Obtain Mother Family Medical History: Hypertension Brother(s) Family Medical History: Cancer (she had 4 brothers one of pancraetic cancer , one of prostate cancer, one of MT and one is alive.), Myocardial Infarction (MT) Sister(s) Family Medical History: Cancer (4 sisters one from liver disease, one from bleeding AVF fistula with ESRD on HD, the other sister is at [facility] with CVA and brain aneurysm.) Daughter(s) Family Medical History: No Reported History (2 daughters no major health issues.) Son(s) Family Medical History: No Reported History (one son with hyperlipidemia.) General Exam Limitations: altered mental status General appearance: lethargic Head exam: Present: atraumatic, normocephalic, normal inspection Eye exam: Present: normal appearance, PERRL, EOMI. Absent: scleral icterus, conjunctival injection, periorbital swelling ENT exam: Present: mucous membranes dry, other (slight right sided facial droop) Neck exam: Present: normal inspection. Absent: tenderness, meningismus, lymphadenopathy Respiratory exam: Present: normal lung sounds bilaterally. Absent: respiratory distress, wheezes, rales, rhonchi, stridor Cardiovascular Exam: Present: normal rhythm, bradycardia GI/Abdominal exam: Present: soft, normal bowel sounds. Absent: distended, tenderness, guarding, rebound, rigid Extremities exam: Present: other (4/5 strength bilateral lower extremities. 5/5 strength bilateral upper extremities) Neurological exam: Present: alert, other (oriented x2. Follow commands. tongue is midline. Speech is soft.) Psychiatric exam: Present: flat affect Course Vital Signs 05/29/20 05/29/20 05/29/20 13:15 13:30 13:45 Temperature 98.1 F Pulse Rate 56 L 55 L 67 Pulse Rate [ Pulse Oximetery ] Respiratory 18 18 18 Rate Blood Pressure 125/78 180/89 151/82 Blood Pressure [Left Arm] O2 Sat by Pulse 96 100 100 Oximetry 05/29/20 05/29/20 05/29/20 14:15 14:45 16:18 Temperature 98.2 F Pulse Rate 51 L 54 L 58 L Pulse Rate [ Pulse Oximetery ] Respiratory 18 18 18 Rate Blood Pressure 175/70 195/96 185/84 Blood Pressure [Left Arm] O2 Sat by Pulse 98 100 100 Oximetry 05/29/20 05/29/20 17:44 18:30 Temperature 98.4 F 98.0 F Pulse Rate 59 L Pulse Rate [ 61 Pulse Oximetery ] Respiratory 16 18 Rate Blood Pressure 183/76 Blood Pressure 142/65 [Left Arm] O2 Sat by Pulse 97 100 Oximetry - Reevaluation(s) Reevaluation #1: Spoke with Dr. Wylie who will review images 05/29/20 13:28 Reevaluation #2: Spoke with patient's family who is refusing tPA 05/29/20 13:48 Medical Decision Making - Medical Decision Making Upon arrival patient is placed into trauma bay 1. A thorough history and physical exam was performed. NIH stroke the patient has a score of 9. Code stroke is activated and the patient sent for CT as well as CT angiography. Patient does improve over her course while she is hospitalized. Discussed the case with the family and they do not want TPA at this time. Lab studies demonstrated an elevated ck. Patient's was given a 500 mL bolus and started on normal saline. She'll be admitted to the hospital here discuss case with Dr. Mahmood agreed to hospitalization - Lab Data Result diagrams: 05/30/20 06:40 05/30/20 06:06 Lab Results 05/29/20 05/29/20 05/29/20 Range/Units 13:27 13:27 13:27 WBC 5.2 (3.8-10.6) k/uL RBC 4.09 (3.80-5.40) m/uL Hgb 10.7 L (11.4-16.0) gm/dL Hct 33.6 L (34.0-46.0) % MCV 82.0 (80.0-100.0) fL MCH 26.1 (25.0-35.0) pg MCHC 31.8 (31.0-37.0) g/dL RDW 14.9 (11.5-15.5) % Plt Count 172 (150-450) k/uL Neutrophils % 70 % Lymphocytes % 15 % Monocytes % 9 % Eosinophils % 3 % Basophils % 1 % Neutrophils # 3.7 (1.3-7.7) k/uL Lymphocytes # 0.8 L (1.0-4.8) k/uL Monocytes # 0.5 (0-1.0) k/uL Eosinophils # 0.1 (0-0.7) k/uL Basophils # 0.0 (0-0.2) k/uL Hypochromasia Slight PT 10.5 (9.0-12.0) sec INR 1.0 (<1.2) APTT 22.3 (22.0-30.0) sec Sodium (137-145) mmol/L Potassium (3.5-5.1) mmol/L Chloride (98-107) mmol/L Carbon Dioxide (22-30) mmol/L Anion Gap mmol/L BUN (7-17) mg/dL Creatinine (0.52-1.04) mg/dL Est GFR (CKD-EPI)AfAm (>60 ml/min/1.73 sqM) Est GFR (CKD-EPI)NonAf (>60 ml/min/1.73 sqM) Glucose (74-99) mg/dL Plasma Lactic Acid Judd 1.2 (0.7-2.0) mmol/L Calcium (8.4-10.2) mg/dL Total Bilirubin (0.2-1.3) mg/dL AST (14-36) U/L ALT (4-34) U/L Alkaline Phosphatase (38-126) U/L Ammonia <9 (<30) umol/L Creatine Kinase (30-135) U/L Troponin I (0.000-0.034) ng/mL Total Protein (6.3-8.2) g/dL Albumin (3.5-5.0) g/dL TSH (0.465-4.680) mIU/L Urine Color Urine Appearance (Clear) Urine pH (5.0-8.0) Ur Specific [place] (1.001-1.035) Urine Protein (Negative) Urine Glucose (UA) (Negative) Urine Ketones (Negative) Urine Blood (Negative) Urine Nitrite (Negative) Urine Bilirubin (Negative) Urine Urobilinogen (<2.0) mg/dL Ur Leukocyte Esterase (Negative) Urine RBC (0-5) /hpf Urine WBC (0-5) /hpf Hyaline Casts (0-2) /lpf Urine Mucus (None) /hpf 05/29/20 05/29/20 05/29/20 Range/Units 13:59 13:59 14:50 WBC (3.8-10.6) k/uL RBC (3.80-5.40) m/uL Hgb (11.4-16.0) gm/dL Hct (34.0-46.0) % MCV (80.0-100.0) fL MCH (25.0-35.0) pg MCHC (31.0-37.0) g/dL RDW (11.5-15.5) % Plt Count (150-450) k/uL Neutrophils % % Lymphocytes % % Monocytes % % Eosinophils % % Basophils % % Neutrophils # (1.3-7.7) k/uL Lymphocytes # (1.0-4.8) k/uL Monocytes # (0-1.0) k/uL Eosinophils # (0-0.7) k/uL Basophils # (0-0.2) k/uL Hypochromasia PT (9.0-12.0) sec INR (<1.2) APTT (22.0-30.0) sec Sodium 138 (137-145) mmol/L Potassium 4.0 (3.5-5.1) mmol/L Chloride 107 (98-107) mmol/L Carbon Dioxide 25 (22-30) mmol/L Anion Gap 6 mmol/L BUN 24 H (7-17) mg/dL Creatinine 1.31 H (0.52-1.04) mg/dL Est GFR (CKD-EPI)AfAm 45 (>60 ml/min/1.73 sqM) Est GFR (CKD-EPI)NonAf 39 (>60 ml/min/1.73 sqM) Glucose 83 (74-99) mg/dL Plasma Lactic Acid Judd (0.7-2.0) mmol/L Calcium 8.6 (8.4-10.2) mg/dL Total Bilirubin 0.6 (0.2-1.3) mg/dL AST 48 H (14-36) U/L ALT 15 (4-34) U/L Alkaline Phosphatase 68 (38-126) U/L Ammonia (<30) umol/L Creatine Kinase 1040 H* (30-135) U/L Troponin I 0.019 (0.000-0.034) ng/mL Total Protein 6.1 L (6.3-8.2) g/dL Albumin 3.1 L (3.5-5.0) g/dL TSH 0.872 (0.465-4.680) mIU/L Urine Color Light Yellow Urine Appearance Clear (Clear) Urine pH 5.5 (5.0-8.0) Ur Specific [place] 1.026 (1.001-1.035) Urine Protein Negative (Negative) Urine Glucose (UA) Negative (Negative) Urine Ketones Negative (Negative) Urine Blood Small H (Negative) Urine Nitrite Negative (Negative) Urine Bilirubin Negative (Negative) Urine Urobilinogen <2.0 (<2.0) mg/dL Ur Leukocyte Esterase Negative (Negative) Urine RBC 12 H (0-5) /hpf Urine WBC 2 (0-5) /hpf Hyaline Casts 8 H (0-2) /lpf Urine Mucus Rare H (None) /hpf - EKG Data EKG Comments: EKG demonstrates a sinus bradycardia with a ventricular rate of 55. OK interval 128. QRS 110. QTC of 449. Incomplete right bundle-branch block. No acute ST segment elevations or depressions Critical Care Time Critical Care Time: Yes Critical Care Time: 32 minutes Disposition Clinical Impression: Cerebrovascular accident (CVA), Acute encephalopathy, Rhabdomyolysis Disposition: ADMITTED IP TO THIS [facility] Condition: Serious Is patient prescribed a controlled substance at d/c from ED?: No Decision to Admit Reason: Admit from EC Decision Date: 05/29/20 Decision Time: 16:07
[2020-05-29 13:41] LABS: Basophils % (A) 1 %; Eosinophils # (A) 0.1 k/uL (0-0.7); Eosinophils % (A) 3 %; HCT 33.6 % (34.0-46.0); HGB 10.7 gm/dL (11.4-16.0); Hypochromasia Slight; Lymphocytes # (A) 0.8 k/uL (1.0-4.8); Lymphocytes % (A) 15 %; MCH 26.1 pg (25.0-35.0); MCHC 31.8 g/dL (31.0-37.0); Mean Platelet Volume 7.9; Monocytes # (A) 0.5 k/uL (0-1.0); Monocytes % (A) 9 %; Neutrophils # (A) 3.7 k/uL (1.3-7.7); Neutrophils % (A) 70 %; Platelet Count 172 k/uL (150-450); RBC 4.09 m/uL (3.80-5.40); RDW 14.9 % (11.5-15.5); WBC 5.2 k/uL (3.8-10.6)
[2020-05-29 13:53] LABS: Lactic Acid, Venous 1.2 mmol/L (0.7-2.0)
--- NOTE | 2020-05-29 14:01 | CT ---
EXAMINATION TYPE: CT brain wo con for TPA DATE OF EXAM: 05/29/2020 COMPARISON: CT 12/20/2014 HISTORY: Neuro deficit, acute, stroke suspected CT DLP: 1088 mGycm Automated exposure control for dose reduction was used. Imaging through the brain using departmental protocol. FINDINGS: Periventricular white matter shows patchy low attenuation as on prior exam. There are cerebral vascul ar calcifications. There is no hemorrhage or hydrocephalus. Calvarium is intact. IMPRESSION: NO ACUTE ABNORMALITY. NONSPECIFIC WHITE MATTER DEMYELINATION.
[2020-05-29 14:08] LABS: Partial Thromboplastin Time 22.3 sec (22.0-30.0); Prothrombin Time 10.5 sec (9.0-12.0)
[2020-05-29 14:21] LABS: Albumin 3.1 g/dL (3.5-5.0); Calcium 8.6 mg/dL (8.4-10.2); Total Bilirubin 0.6 mg/dL (0.2-1.3); Total Protein 6.1 g/dL (6.3-8.2)
--- NOTE | 2020-05-29 14:45 | CT ---
EXAMINATION TYPE: CT angio head neck DATE OF EXAM: 05/29/2020 HISTORY: CODE STROKE, acute onset neuro deficit. COMPARISON: NONE CT DLP: 329.6 mGycm. Automated Exposure Control for Dose Reduction was Utilized. TECHNIQUE: CTA scan of the head and neck performed without and with IV Contrast, patient injected wi th 65 ML mL of Isovue 370, axial images are obtained, coronal and sagittal reformatted images are rev iewed. Three-D reconstructed images are created on an independent workstation and reviewed. FINDINGS: Carotid/Vascular Structures: Prominent central pulmonary arteries with satisfactory opacification. Fi nding likely on basis of underlying pulmonary artery hypertension. Normal three-vessel origin from th e aortic arch without significant stenosis. Normal origin right common carotid artery from brachiocep halic artery. No significant plaque or stenosis in the common carotid arteries bilaterally with tortu ous medial course into the posterior oropharynx incidentally noted. There is mild to moderate calcifi ed plaque at carotid bulb levels without significant stenosis. Patent bilateral external carotid marisel jelani without significant stenosis. Codominant vertebrobasilar system pain to basilar junction. No significant focal stenosis or aneurysm al change. Hypoplastic bilateral posterior communicating arteries. Patent anterior communicating artery. No significant focal stenosis or aneurysmal change in the anter ior circulation. Other: There is exaggerated cervical curvature. There is vbus-bf-[id number] underlying emphysematous ch joyce in the visualized upper lobes. IMPRESSION: 1. No significant stenosis in common or internal carotid arteries bilaterally. 2. No significant stenosis or aneurysm at the level of the [place].
--- NOTE | 2020-05-29 14:48 | XR ---
EXAMINATION TYPE: XR chest 2V DATE OF EXAM: 05/29/2020 COMPARISON: Chest x-ray April 08, 2018. HISTORY: Weakness and altered mental status. TECHNIQUE: Frontal and lateral views of the chest are obtained. FINDINGS: There is chronic parenchymal change bilaterally without suspicious new focal air space opa city, pleural effusion, or pneumothorax seen. The cardiac silhouette size remains enlarged with athe rosclerotic change of the thoracic aorta. Osseous structures remain demineralized with exaggerated th oracic kyphosis. IMPRESSION: Chronic changes and cardiomegaly without acute pulmonary process.
[2020-05-29 15:06] LABS: Appearance,Urine Clear (Clear); Bilirubin,Urine Negative (Negative); Blood,Urine Small (Negative); Color,Urine Light Yellow; Glucose,Urine (UA) Negative (Negative); Hyaline Casts,Urine 8 /lpf (0-2); Ketones,Urine Negative (Negative); Leukocyte Esterase,Urine Negative (Negative); Mucus,Urine Rare /hpf; Nitrite,Urine Negative (Negative); PH, Urine 5.5 (5.0-8.0); Protein,Urine Negative (Negative); RBC,Urine 12 /hpf (0-5); Specific Gravity,Urine 1.026 (1.001-1.035); Urobilinogen,Urine <2.0 mg/dL (<2.0); WBC,Urine 2 /hpf (0-5)
[2020-05-29] MEDS ORDERED: SODIUM CHLORIDE 0.9% 500 ML 500 ML IV ONE (15:17)
[2020-05-29] MEDS: ATORVASTATIN 40 MG TAB PO SCH (16:14)
[2020-05-29] MEDS: SODIUM CHLORIDE 0.9% 1,000 ML IV SCH (16:14)
[2020-05-29] MEDS: ASPIRIN 325 MG TAB PO SCH (16:14)
[2020-05-29] MEDS ORDERED: guaiFENesin SYRUP 100MG/5ML 200 MG/10 ML CUP PO PRN (19:06)
[2020-05-29] MEDS ORDERED: CALCIUM CARBONATE 500 MG CHEWABLE PO PRN (19:06)
[2020-05-29] MEDS ORDERED: bisacodyL 10 MG SUPP RECTAL PRN (19:06)
[2020-05-29] MEDS ORDERED: ACETAMINOPHEN TAB 325 MG TAB PO PRN (19:06)
[2020-05-29] MEDS ORDERED: MAGNESIUM HYDROXIDE 2,400 MG/10 ML CUP PO PRN (19:06)
[2020-05-29] MEDS ORDERED: NON FORMULARY DRUG (Menthol [Biofreeze] 1 APPLIC) TOPICAL PRN (19:06)
[2020-05-29] MEDS: carvediloL 6.25 MG TAB PO SCH (19:29)
[2020-05-29] MEDS: LOSARTAN 50 MG TAB PO SCH (19:29)
[2020-05-29] MEDS: MIRTAZAPINE 15 MG TAB PO SCH (20:32)
[2020-05-29] MEDS: LOSARTAN-HCTZ 50-12.5 MG 1 EACH TAB PO SCH ×2 (20:41→21:07)
[2020-05-29] MEDS ORDERED: NON FORMULARY DRUG (Ensure Clear 1 CAN) PO SCH (21:00)
[2020-05-30] MEDS: SODIUM CHLORIDE 0.9% 1,000 ML IV SCH ×2 (06:48→19:57)
[2020-05-30] MEDS: METOCLOPRAMIDE 5 MG TAB PO SCH ×3 (06:52→16:51)
[2020-05-30] MEDS: HEPARIN SODIUM,PORCINE 5,000 UNIT/ML 1 ML VIAL SQ SCH ×2 (06:52→18:27)
[2020-05-30 07:06] LABS: Basophils % (A) 0 %; Eosinophils # (A) 0.1 k/uL (0-0.7); Eosinophils % (A) 1 %; HCT 38.1 % (34.0-46.0); HGB 12.2 gm/dL (11.4-16.0); Hypochromasia Moderate; Lymphocytes # (A) 0.6 k/uL (1.0-4.8); Lymphocytes % (A) 9 %; MCH 26.4 pg (25.0-35.0); MCHC 31.9 g/dL (31.0-37.0); MCV 82.9 fL (80.0-100.0); Mean Platelet Volume 7.7; Monocytes # (A) 0.4 k/uL (0-1.0); Monocytes % (A) 6 %; Neutrophils # (A) 5.8 k/uL (1.3-7.7); Neutrophils % (A) 83 %; Platelet Count 205 k/uL (150-450); RDW 14.3 % (11.5-15.5)
[2020-05-30 07:08] LABS: Reticulocyte % 1.4 % (0.5-2.0)
[2020-05-30 07:27] LABS: Albumin 3.6 g/dL (3.5-5.0); Total Bilirubin 0.9 mg/dL (0.2-1.3); Total Protein 7.6 g/dL (6.3-8.2)
[2020-05-30 08:03] LABS: Potassium 4.7 mmol/L (3.5-5.1)
[2020-05-30] MEDS: LOSARTAN 50 MG TAB PO SCH (08:39)
[2020-05-30] MEDS: LOSARTAN-HCTZ 50-12.5 MG 1 EACH TAB PO SCH (08:39)
[2020-05-30] MEDS: CHOLECALCIFEROL 1,000 UNIT TAB PO SCH (08:39)
[2020-05-30] MEDS: ATORVASTATIN 40 MG TAB PO SCH (08:39)
[2020-05-30] MEDS: FAMOTIDINE 20 MG TAB PO SCH (08:39)
[2020-05-30] MEDS: MULTIVITAMINS, THERA 1 EACH TAB PO SCH (08:39)
[2020-05-30] MEDS: DONEPEZIL 10 MG TAB PO SCH (08:39)
[2020-05-30] MEDS: ASPIRIN 325 MG TAB PO SCH (08:39)
[2020-05-30] MEDS: SODIUM CHLORIDE 0.65% NASAL SPRAY 44 ML BTL INTRANASAL SCH ×3 (08:40→16:51)
[2020-05-30] MEDS: carvediloL 6.25 MG TAB PO SCH (08:40)
--- NOTE | 2020-05-30 11:36 | ECHOF ---
Referral Reason:Thrombus MEASUREMENTS -------- HEIGHT: 165.1 cm WEIGHT: 59.4 kg BP: 176/75 RVIDd: 2.7 cm (< 3.3) IVSd: 1.4 cm (0.6 - 1.1) LVIDd: 2.7 cm (3.9 - 5.3) LVPWd: 1.0 cm (0.6 - 1.1) EDV(Teich): 28 ml IVSs: 1.5 cm LVIDs: 1.8 cm LVPWs: 1.5 cm %IVS Thck: 6 % ESV(Teich): 10 ml EF(Teich): 66 % %FS: 35 % SV(Teich): 19 ml LA Diam: 3.4 cm (2.7 - 3.8) LALs A4C: 4.5 cm LAAs A4C: 12.2 cm LAESV A-L A4C: 28 ml LAESV MOD A4C: 26 ml LALs A2C: 5.3 cm LAAs A2C: 16.6 cm LAESV A-L A2C: 44 ml LAESV MOD A2C: 43 ml LAESV(A-L): 38 ml LAESV Index (A-L): 23.29 ml/m Ao Diam: 2.6 cm (2.0 - 3.7) AV Cusp: 1.9 cm (1.5 - 2.6) MV E Rafa: 0.67 m/s MV DecT: 205 ms MV Dec [place]: 3.3 m/s MV A Rafa: 0.91 m/s MV E/A Ratio: 0.73 MV PHT: 59 ms TR Vmax: 1.82 m/s TR maxP.23 mmHg RAP: 5.00 mmHg RVSP: 18.23 mmHg FINDINGS -------- Sinus rhythm. This was a technically good study. There is moderate concentric left ventricular hypertrophy. Overall left ventricular systolic functi on is normal with, an EF between 55 - 60 %. The right ventricle is normal in size. The left atrial size is normal. The right atrial size is normal. The aortic valve is trileaflet, and appears structurally normal. No aortic stenosis or regurgitation. Mild mitral regurgitation is present. Mild tricuspid regurgitation present. Right ventricular systolic pressure is normal at < 35 mmHg. There is no pulmonic regurgitation present. The aortic root size is normal. There is no pericardial effusion. CONCLUSIONS -------- 1. There is moderate concentric left ventricular hypertrophy. 2. Overall left ventricular systolic function is normal with, an EF between 55 - 60 %. 3. The left atrial size is normal. 4. The right atrial size is normal. 5. Mild mitral regurgitation is present. 6. Mild tricuspid regurgitation present. RECEPTION INTERVIEWER: Sydnie Sloan RDCS
[2020-05-30] MEDS ORDERED: carvediloL 6.25 MG TAB PO STA (13:18)
[2020-05-30] MEDS ORDERED: hydrALAZINE HCL 20 MG/ML 1 ML VIAL IVP PRN (13:19)
[2020-05-30] MEDS: amLODIPine 5 MG TAB PO SCH (13:27)
--- NOTE | 2020-05-30 14:41 | P.CNNES ---
History of Present Illness Consult date: 05/30/20 Requesting physician: Kassie Wynn Reason for Consult: Altered mental status History of Present Illness: History was obtained from medical records. This is a 79-year-old female with medical history of vascular dementia, lupus, rheumatoid arthritis and ADELA who presented to the emergency department on 05/29/2020 for reported altered mental status. She was transferred from extended care facility. Per medical documentation it's noted that the EMS noted that the patient was normal at the morning of presentation. Last known normal was 10:30am. Then the patient's nurse went in the room to give the patient's medication around 1:00 and was found the patient to be altered mental status. They also felt that the patient had weakness on the left side as well as a facial droop. Per the patient's daughter she stated that the patient has been significantly declined over the past month. She had acute kidney injury in the past 1 week. She stopped taking anything oral intake. She stopped ambulating on her own and had no fevers. Patient does not have history of CVA. Upon seeing the patient she was only able to tell me her name. On presentation the patient's initial temperature was 98.1 orally, blood pressure is 125/78, pulse ox is 96 at room air, respiratory rate is at 18. And the heart rate was 56 Workup in the hospital consisted of CT of the head that was done on 05/29/2020 which was reported as no acute abnormality. Nonspecific white matter demyelination. CTA of the head and neck was reported as no significant stenosis in the common or internal carotid arteries bilaterally. No significant stenosis or aneurysm at the level of the [place]. Chest x-ray shows chronic changes and cardiomegaly without acute pulmonary process. EKG was reported as sinus bradycardia. Ventricular rate of 55. Incomplete right bundle branch block. On presentation her creatinine kinase was 1040. Lactate dehydrogenase was 1002. Total protein is 6.1, albumin is 3.1. Of note patient had an EEG in our facility on the 12/22/2014 and was read as normal. Review of Systems Review of system: The 12 point system was reviewed and apparent positive and negative per HPI. Past Medical History Past Medical History: Dementia, GERD/Reflux, Hyperlipidemia, Hypertension, Osteoarthritis (OA) Additional Past Medical History / Comment(s): lupus, anemia,. Headaches, arthritis History of Any Multi-Drug Resistant Organisms: None Reported Past Surgical History: Hysterectomy, Orthopedic Surgery Additional Past Surgical History / Comment(s): LT ROTATOR CUFF SX Past Anesthesia/Blood Transfusion Reactions: No Reported Reaction Additional Past Anesthesia/Blood Transfusion Reaction / Comment(s): CLAUSTERPHOBIA Past Psychological History: Anxiety Past Alcohol Use History: None Reported Past Drug Use History: None Reported - Past Family History Brother(s) Family Medical History: Cancer (she had 4 brothers one of pancraetic cancer, one of prostate cancer, one of OK and one is alive.), Myocardial Infarction (OK) Sister(s) Family Medical History: Cancer (4 sisters one from liver disease, one from bleeding AVF fistula with ESRD on HD, the other sister is at [facility] with CVA and brain aneurysm.) Daughter(s) Family Medical History: No Reported History (2 daughters no major health issues.) Son(s) Family Medical History: No Reported History (one son with hyperlipidemia.) Father Family Medical History: Unable to Obtain Mother Family Medical History: Hypertension (Mother at the age of 84 from hypertnsion and dementia) Medications and Allergies Home Medications Medication Instructions Recorded Confirmed Type Donepezil [Aricept] 10 mg PO DAILY@79904/08/18 05/29/20 History Ensure Clear 1 can PO BID 04/08/18 05/29/20 History Magnesium Hydroxide [Milk of 7,200 mg PO Q48H PRN 04/08/18 05/29/20 History Magnesia Concentrate] Multivitamins, Thera [Multivitamin 1 tab PO DAILY@79904/08/18 05/29/20 History (formulary)] Na Phos,M-B/Na Phos,Di-Ba [Fleet 133 ml RECTAL ONCE PRN 04/08/18 05/29/20 History Adult] bisacodyL [Dulcolax] 10 mg RECTAL DAILY PRN 04/08/18 05/29/20 History Acetaminophen Tab [Tylenol] 650 mg PO Q4H PRN 05/29/20 05/29/20 History Calcium Carbonate [Tums] 500 mg PO BID PRN 05/29/20 05/29/20 History Cholecalciferol [Vitamin D3 (25 2,000 unit PO DAILY@79905/29/20 05/29/20 History Mcg = 1000 Iu)] Famotidine [Pepcid] 20 mg PO DAILY@0800 05/29/20 05/29/20 History Loperamide HCl [Imodium A-D] 2 - 4 mg PO TID PRN MDD 4 TABS 05/29/20 05/29/20 History Losartan/Hydrochlorothiazide 1 tab PO DAILY@0800 05/29/20 05/29/20 History [Losartan-Hctz 100-12.5 mg Tab] Menthol [Biofreeze] 1 applic TOPICAL Q8H PRN 05/29/20 05/29/20 History Metoclopramide HCl [Reglan] 5 mg PO AC-TID 05/29/20 05/29/20 History Mirtazapine 7.5 mg PO HS@2100 05/29/20 05/29/20 History Potassium Chloride [Klor-Con 10] 10 meq PO DAILY@1700 05/29/20 05/29/20 History Sodium Chloride [Saline Nasal 2 spray EA NOSTRIL 05/29/20 05/29/20 History [place]] TID@0800,1200,1700 carvediloL [Coreg] 6.25 mg PO BID@0800,1700 05/29/20 05/29/20 History guaiFENesin [guaiFENesin Oral 200 mg PO Q4H PRN 05/29/20 05/29/20 History Solution] Allergies Allergy/AdvReac Type Severity Reaction Status Date / Time cephalexin [Cephalexin] Allergy Unknown Verified 05/29/20 13:54 doxycycline Allergy Unknown Verified 05/29/20 13:54 iodine Allergy Unknown Verified 05/29/20 13:54 shellfish derived Allergy Unknown Verified 05/29/20 13:54 levofloxacin [From Levaquin] AdvReac Dyspnea Verified 05/29/20 13:54 Penicillins AdvReac Dyspnea Verified 05/29/20 13:54 monohydrate Allergy Unknown Uncoded 05/29/20 13:54 Physical Examination - Vital Signs Vital Signs: Vital Signs Temp Pulse Pulse Resp BP BP Pulse Ox 05/30/20 04:00 98.0 F 65 18 176/75 100 05/30/20 00:00 98.1 F 67 16 166/71 100 05/29/20 20:00 98.4 F 61 16 142/65 97 05/29/20 19:04 87 193/73 05/29/20 18:30 98.0 F 59 L 18 183/76 100 05/29/20 17:44 98.4 F 61 16 142/65 97 05/29/20 16:18 98.2 F 58 L 18 185/84 100 05/29/20 14:45 54 L 18 195/96 100 05/29/20 14:15 51 L 18 175/70 98 05/29/20 13:45 67 18 151/82 100 05/29/20 13:30 55 L 18 180/89 100 05/29/20 13:15 98.1 F 56 L 18 125/78 96 Intake and Output 05/29/20 05/30/20 05/30/20 22:59 06:59 14:59 Output Total 0 Balance 0 Output: Urine 0 Other: Voiding Method Bedpan Bedpan # Voids 2 Weight 57.833 kg 59.5 kg GENERAL: The patient is lying in bed and is not in acute distress. CHEST: The heart rate is regular rate rhythm. No murmurs to auscultation. LUNG: Clear to auscultation bilaterally no wheezing noted throughout. Not labored breathing. ABDOMEN/GI: Bowel sounds present in all 4 quadrants. No tenderness to palpation throughout. NEUROLOGICAL: Limited because of patient condition. Higher mental function: The patient is drowsy but is awakable. Oriented to self only. Patient is following some simple commands like showing a thumbs up. Able to name objects such as watch and pen. No aphasia and no neglect. Cranial nerves: The pupils are round, equal around 3mm bilaterally and reactive to light. Visual hawkins are full to threat. Extraocular movement: she was tracking throughout room and no nystagmus appreciated. Facial sensation could not be assessed. No facial weakness appreciated. No dysarthria is noted. Motor: Gait is defered. The strength is able to move all extremities above gravity and no focality seen. Normal tone and bulk. Sensation: Patient withdrawl to painful stimuli throughout. Reflexes (right/left): 1+ throughout. Plantars are downgoing bilaterally. Results TSH is 0.872. Ammonia was less than 9. Glucose serum was 83 and the repeat was 136. UA was not significant for urinary tract infection. AST on presentation was 48 ALTs was 15. The repeated AST was 64 and ALTs was 20. Initial BU is 24 and creatinine was 1.3 on presentation the repeat it was 22 BU and creatinine was 1.11 Lipid profile the LDL was 154, HDL was 43, cholesterol is 213, triglyceride was 81 - Laboratory Findings CBC and BMP: 05/30/20 06:40 05/30/20 06:06 Abnormal Lab Findings: Abnormal Labs 05/29/20 05/29/20 05/29/20 13:27 13:59 14:50 Hgb 10.7 L Hct 33.6 L Lymphocytes # 0.8 L Chloride Carbon Dioxide BUN 24 H Creatinine 1.31 H Glucose AST 48 H Lactate Dehydrogenase Creatine Kinase 1040 H* Total Protein 6.1 L Albumin 3.1 L Cholesterol LDL Cholesterol, Calc Urine Blood Small H Urine RBC 12 H Hyaline Casts 8 H Urine Mucus Rare H 05/30/20 05/30/20 06:06 06:40 Hgb Hct Lymphocytes # 0.6 L Chloride 109 H Carbon Dioxide 19 L BUN 22 H Creatinine 1.11 H Glucose 136 H AST 64 H Lactate Dehydrogenase 1002 H Creatine Kinase Total Protein Albumin Cholesterol 213 H LDL Cholesterol, Calc 154 H Urine Blood Urine RBC Hyaline Casts Urine Mucus Assessment and Plan Assessment: This is a 79-year-old female with medical history of vascular dementia, lupus, rheumatoid arthritis and ADELA who presented to the emergency department on 05/29/2020 for reported altered mental status. She was transferred from [facility] care [facility]. Per medical documentation it's noted that the EMS noted that the patient was normal at the morning of presentation. Last known normal was 10:30am. Then the patient's nurse went in the room to give the patient's medication around 1:00 and was found the patient to be altered mental status. They also felt that the patient had weakness on the left side as well as a facial droop. Per the patient's daughter she stated that the patient has been significantly declined over the past month. She had acute kidney injury in the past 1 week. She stopped taking anything oral intake. She stopped ambulating on her own and had no fevers. Patient does not have history of CVA. Toxic-metabolic Encephalopathy ADELA--improving Elevated CPK History of vascular dementia Lupus Plan: CT of the head that was done on 05/29/2020 which was reported as no acute abnormality. Nonspecific white matter demyelination. CTA of the head and neck was reported as no significant stenosis in the common or internal carotid arteries bilaterally. No significant stenosis or aneurysm at the level of the [place]. On presentation creatinine kinase was 1040. Lactate dehydrogenase was 1002. Total protein is 6.1, albumin is 3.1. -ordered EEG. Will not start patient on seizure medication unless EEG shows seizure. MRI Brain: Nonspecific white matter demylination consistent of small vessel disease. Regarding the patient's elevated CPK and her an acute kidney injury we'll defer the management to the primary team. The patient is currently on IV fluids. Regarding patient's vascular dementia looks like she is on Aricept 10 mg daily. She is on mirtazapine as well 7.5 mg at night She is on multiple vitamins daily She is on aspirin 325 as well as Lipitor 40 mg daily Thank you for the consult. Ted Henriquez M.D. Neuro-Hospitalist Time with Patient: Greater than 30
--- NOTE | 2020-05-30 14:53 | MR ---
MR brain without contrast HISTORY: Cerebrovascular accident Multiplanar multisequence imaging obtained through the brain. Correlation CT brain 05/29/2020 Technologist unable to obtain venous access. There is artifact and motion present on the exam. No restricted diffusion. Fast brain protocol was ut ilized. Corpus callosum, pituitary, cervical medullary junction, cerebellopontine angles thought to b e normal. There is hyperintensity and inversion recovery T2-weighted sequences within the ame and pe riventricular white matter, scattered hyperintensities are present within the pericallosal, juxtacort ical and subcortical white matter, there are too numerous to count lesions present. No hemorrhage or hydrocephalus is evident. The orbits show symmetric appearance. No extensive inflammatory change note d within the mastoid air cells or sinuses. There are normal vascular flow voids. There is mild atroph y which is likely age-related. IMPRESSION: Nonspecific white matter demyelination may be due to chronic small vessel ischemia.
--- NOTE | 2020-05-30 16:24 | P.HPIM ---
History of Present Illness H&P Date: 05/29/20 Chief Complaint: TIA/CVA This is a 79 year old female patient of mine with with previous medical history significant for hypertension and hypertensive cardiovascular disease, hyperlipidemia, GERD, osteoarthritis, Lupus, and vascular dementia, currently resides at [facility], and hes been doing fine till a month ago when she suddenly stopped eating and drinking and she developed an acute kidney injury was treated with IVF at [facility] and she hs recovered from that, however the patient started to have more behavioral issues and has not been eating more than 25 % of her meals and she needed a lot of encouragement to eat and drink, she seemed very withdrawn and depressed during this pandemic, she was started on mirtazepine at 7.5 mg orally daily, and then she was taken off of it due to concerns from the nursing staff, and patient was found sitting on the floor with no injury about 2 days ago, but today she was pretty muh unresponsive with possible facial drooping and she was sent to the ER for evaluation of possible CVA and acode stroke was called and she had CT of the brain that was negative for infarct or bleed, CTA was negative as well she was placed on ASA 325 mg orally daily and Lipitor 40 mg orally daily and was admitted to the hospital for complete stroke evaluation and Neurology consultation. Review of Systems Constitutional: Reports anorexia, Reports fatigue, Reports malaise, Reports weight loss Eyes: denies blurred vision, denies bulging eye Ears: bilateral: decreased hearing Ears, nose, mouth and throat: Denies dysphagia, Denies neck lump, Denies sore throat Cardiovascular: Denies chest pain, Denies decreased exercise tolerance, Denies dyspnea on exertion, Denies lightheadedness, Denies rapid heart beat, Denies shortness of breath, Denies syncope Respiratory: Denies congestion, Denies cough, Denies cough with sputum, Denies home oxygen, Denies sleep apnea, Denies snoring, Denies wheezing Gastrointestinal: Reports loss of appetite, Denies abdominal pain, Denies bloating, Denies BRBPR, Denies excessive gas, Denies heartburn, Denies melena, Denies nausea, Denies vomiting Genitourinary: Reports nocturia, Reports urge incontinence, Reports urinary frequency, Denies dysuria Menstruation: Reports post hysterectomy, Reports postmenopausal Musculoskeletal: Reports gait dysfunction, Reports low back pain Musculoskeletal: absent: ankle pain, ankle stiffness, ankle swelling, elbow pain, elbow stiffness, elbow swelling, foot pain, foot stiffness, foot swelling, hand pain, hand stiffness, hand swelling, hip pain, hip stiffness, hip swelling, knee pain, knee stiffness, knee swelling, shoulder pain, shoulder stiffness, s houlder swelling, wrist pain, wrist stiffness, wrist swelling Integumentary: Reports color changes (raynaud) Neurological: Reports confusion, Reports gait dysfunction, Reports weakness Psychiatric: Reports confusion, Reports depression, Denies sadness/tearfulness, Denies sleep disturbances, Denies suicidal ideation Endocrine: Denies fatigue, Denies weight change Past Medical History Past Medical History: Dementia, GERD/Reflux, Hyperlipidemia, Hypertension, Osteoarthritis (OA) Additional Past Medical History / Comment(s): lupus, anemia,. Headaches, arthritis History of Any Multi-Drug Resistant Organisms: None Reported Past Surgical History: Hysterectomy, Orthopedic Surgery Additional Past Surgical History / Comment(s): LT ROTATOR CUFF SX Past Anesthesia/Blood Transfusion Reactions: No Reported Reaction Additional Past Anesthesia/Blood Transfusion Reaction / Comment(s): CLAUSTERPHOBIA Past Psychological History: Anxiety Past Alcohol Use History: None Reported Past Drug Use History: None Reported - Past Family History Father Family Medical History: Unable to Obtain Mother Family Medical History: Hypertension (Mother at the age of 84 from hypertnsion and dementia) Brother(s) Family Medical History: Cancer (she had 4 brothers one of pancraetic cancer, one of prostate cancer, one of NV and one is alive.), Myocardial Infarction (NV) Sister(s) Family Medical History: Cancer (4 sisters one from liver disease, one from bleeding AVF fistula with ESRD on HD, the other sister is at [facility] with CVA and brain aneurysm.) Daughter(s) Family Medical History: No Reported History (2 daughters no major health issues.) Son(s) Family Medical History: No Reported History (one son with hyperlipidemia.) Medications and Allergies Home Medications Medication Instructions Recorded Confirmed Type Donepezil [Aricept] 10 mg PO DAILY@0800 04/08/18 05/29/20 History Ensure Clear 1 can PO BID 04/08/18 05/29/20 History Magnesium Hydroxide [Milk of 7,200 mg PO Q48H PRN 04/08/18 05/29/20 History Magnesia Concentrate] Multivitamins, Thera [Multivitamin 1 tab PO DAILY@79904/08/18 05/29/20 History (formulary)] Na Phos,M-B/Na Phos,Di-Ba [Fleet 133 ml RECTAL ONCE PRN 04/08/18 05/29/20 History Adult] bisacodyL [Dulcolax] 10 mg RECTAL DAILY PRN 04/08/18 05/29/20 History Acetaminophen Tab [Tylenol] 650 mg PO Q4H PRN 05/29/20 05/29/20 History Calcium Carbonate [Tums] 500 mg PO BID PRN 05/29/20 05/29/20 History Cholecalciferol [Vitamin D3 (25 2,000 unit PO DAILY@79905/29/20 05/29/20 History Mcg = 1000 Iu)] Famotidine [Pepcid] 20 mg PO DAILY@79905/29/20 05/29/20 History Loperamide HCl [Imodium A-D] 2 - 4 mg PO TID PRN MDD 4 TABS 05/29/20 05/29/20 History Losartan/Hydrochlorothiazide 1 tab PO DAILY@79905/29/20 05/29/20 History [Losartan-Hctz 100-12.5 mg Tab] Menthol [Biofreeze] 1 applic TOPICAL Q8H PRN 05/29/20 05/29/20 History Metoclopramide HCl [Reglan] 5 mg PO AC-TID 05/29/20 05/29/20 History Mirtazapine 7.5 mg PO HS@2100 05/29/20 05/29/20 History Potassium Chloride [Klor-Con 10] 10 meq PO DAILY@17005/29/20 05/29/20 History Sodium Chloride [Saline Nasal 2 spray EA NOSTRIL 05/29/20 05/29/20 History [place]] TID@0800,1200,1700 carvediloL [Coreg] 6.25 mg PO BID@0800,1700 05/29/20 05/29/20 History guaiFENesin [guaiFENesin Oral 200 mg PO Q4H PRN 05/29/20 05/29/20 History Solution] Allergies Allergy/AdvReac Type Severity Reaction Status Date / Time cephalexin [Cephalexin] Allergy Unknown Verified 05/29/20 13:54 doxycycline Allergy Unknown Verified 05/29/20 13:54 iodine Allergy Unknown Verified 05/29/20 13:54 shellfish derived Allergy Unknown Verified 05/29/20 13:54 levofloxacin [From Levaquin] AdvReac Dyspnea Verified 05/29/20 13:54 Penicillins AdvReac Dyspnea Verified 05/29/20 13:54 monohydrate Allergy Unknown Uncoded 05/29/20 13:54 Physical Exam Vitals: Vital Signs Temp Pulse Pulse Resp BP BP Pulse Ox 05/29/20 19:04 87 193/73 05/29/20 18:30 98.0 F 59 L 18 183/76 100 05/29/20 16:18 98.2 F 58 L 18 185/84 100 05/29/20 14:45 54 L 18 195/96 100 05/29/20 14:15 51 L 18 175/70 98 05/29/20 13:45 67 18 151/82 100 05/29/20 13:30 55 L 18 180/89 100 05/29/20 13:15 98.1 F 56 L 18 125/78 96 Intake and Output 05/29/20 05/29/20 05/29/20 06:59 14:59 22:59 Other: Weight 57.833 kg Physical examination: HEENT: head is atraumatic normocephalic, pupils were equal round reactive to light and accommodations extra ocular muscle movement were intact, mucous membranes of the mouth are somewhat dry. Neck: suppl, no JVP , no carotid bruit. Chest : decrease breath sounds at the bases with few ronchi no expiratory wheezes, no chest wall tenderness or intercostal retractions. Heart: first heart sound is depressed, second heart sound is normal there is ESDRAS 2/6 located at the left sternal border. Abdomen: soft non tender, non distended positive bowel sounds. Extremities: there is no edema no calf tenderness, DP + 1 bilaterally. Neurologic examination: patient is awake alert X 1, baseline dementia, muscle power 3/5 in upper and lower extremities bilaterally, deep tendon reflexes were depressed, babinski's were flexor bilaterraly, there was no pronation drift. Results CBC & Chem 7: 05/29/20 13:27 05/29/20 13:59 Labs: Abnormal Lab Results - Last 24 Hours (Table) 05/29/20 05/29/20 05/29/20 Range/Units 13:27 13:59 14:50 Hgb 10.7 L (11.4-16.0) gm/dL Hct 33.6 L (34.0-46.0) % Lymphocytes # 0.8 L (1.0-4.8) k/uL BUN 24 H (7-17) mg/dL Creatinine 1.31 H (0.52-1.04) mg/dL AST 48 H (14-36) U/L Creatine Kinase 1040 H* (30-135) U/L Total Protein 6.1 L (6.3-8.2) g/dL Albumin 3.1 L (3.5-5.0) g/dL Urine Blood Small H (Negative) Urine RBC 12 H (0-5) /hpf Hyaline Casts 8 H (0-2) /lpf Urine Mucus Rare H (None) /hpf Thrombosis Risk Factor Assmnt - DVT/VTE Prophylaxis DVT/VTE Prophylaxis: Pharmacologic Prophylaxis ordered, Mechanical Prophylaxis ordered Assessment and Plan Assessment: Assessment and plan: 1. TIA rule out CVA. initial evaluation so far is negative we will continue with ASA 325 mg orally daily, Lipitor 40 mg orally daily, we will check echocardiogram for evaluation of LVF, we will continue with neurochecks every 2 hours for the next 24 hours, we will arrange for MRI of the brain with and without SILVESTRE, PT and OT evaluation. 2. Hyoertensive urgency. we will restart her Losartan 100/12.5 mg orally daily along with Coreg 6.25 mg orally bid. 3. Anemia. we will check iron studies and B12, folate levels. 4. Hypertension and hypertensive cardiovascular disease. we will continue with Losartan 100/12.5 mg orally daily along with Coreg 6.25 mg orally bid. 5. Hyperlipidemia. we will continue with Lipitor 40 mg orally daily. 6. Vascular dementia. we will continue wit Aricept 10 mg orally daily. 7. Acute kidney injury due to poor oral intake . we will continue IVF Normal saline at 75 ml/h. 8. Allergic rhinitis. we will continue with flonase nasal spray. 9. Depression with poor appetite . we will restart Remeron 7.5 mg orally at bedtime. 10. GERD we will continue with Pepcid 20 mg orally daily. 11. constipation . we will continue with current bowel care. 12. History of Lupus . was taking off Plaquenil as she could not tolerate. 13. DVT prophylaxis. we will start Heparin 5000 units SC Q 12 hous. 14. GI prophylaxis. we will continue with Pepcid 20 mg orally daily. 15. Full code.' 16. Admits to inpatient extimate length of stay is 2 midnights. 17. aquaculture worker consult for discharge planning.
[2020-05-30] MEDS: POTASSIUM CHLORIDE ER 10 MEQ TAB.ER.PRT PO SCH (16:51)
[2020-05-30] MEDS: carvediloL 12.5 MG TAB PO SCH (16:51)
--- NOTE | 2020-05-30 17:59 | EEG ---
ELECTROENCEPHALOGRAM REPORT DATE OF SERVICE: 05/30/2020. CLINICAL HISTORY: This is a 79-year-old female with reported history of vascular dementia, lupus, and acute kidney injury that presented to the emergency department from a nursing facility on 05/29/2020 for altered mental status for the past one month. This EEG was obtained to evaluate for seizure and epileptiform activity. Relevant medication: The patient is not on any antiepileptic medications. EEG TYPE: This routine 21 channel EEG was performed with video using the 10/20 electrode placement system. DESCRIPTION: Wakefulness is only obtained. During wakefulness, there is a posterior dominant rhythm of low to moderate voltage that is poorly reactive of 6-6.5 Hz activity. No drowsiness or stage 2 sleep architecture is seen during the study. There is a significant myogenic as well as motion artifact as seen during the study. Interictal and ictal is none. ACTIVATION PROCEDURE: Photic stimulation and hyperventilation was not performed because of the patient's lack of cooperation. EEG DIAGNOSIS: This is an abnormal EEG due to: 1. Mild background slowing. 2. Myogenic and motion artifacts. CLINICAL INTERPRETATION: This is an abnormal routine awake EEG due to mild background slowing suggestive of mild encephalopathy of unspecified etiology. There is no focal slowing. There is no epileptiform activity and no seizure was detected. This study was limited because of the patient's motion as well as myogenic artifact. Clinical interpretation is recommended. MMODL / IJN: [id number] / MTDD
[2020-05-30 19:20] LABS: % Iron Saturation 8.53 (12.00-45.00); Ferritin 349.9 ng/mL (10.0-291.0); Folate, Serum 11.3 ng/mL
[2020-05-30] MEDS: MIRTAZAPINE 15 MG TAB PO SCH (19:58)
[2020-05-31] MEDS: HEPARIN SODIUM,PORCINE 5,000 UNIT/ML 1 ML VIAL SQ SCH ×2 (07:05→16:48)
[2020-05-31] MEDS: METOCLOPRAMIDE 5 MG TAB PO SCH ×3 (07:06→16:48)
[2020-05-31 09:51] LABS: Free Kappa Lt Chain Qnt, Serum 2.59 mg/dL (0.33-1.94)
--- NOTE | 2020-05-31 10:39 | P.PN ---
Subjective Progress Note Date: 05/30/20 This is a 79 year old female patient of [facility] with with previous medical history significant for hypertension and hypertensive cardiovascular disease, hyperlipidemia, GERD, osteoarthritis, Lupus, and vascular dementia, currently resides at [facility], and hes been doing fine till a month ago when she suddenly stopped eating and drinking and she developed an acute kidney injury was treated with IVF at [facility] and she hs recovered from that, however the patient started to have more behavioral issues and has not been eating more than 25 % of her meals and she needed a lot of encouragement to eat and drink, she seemed very withdrawn and depressed during this pandemic, she was started on mirtazepine at 7.5 mg orally daily, and then she was taken off of it due to concerns from the nursing staff, and patient was found sitting on the floor with no injury about 2 days ago, but today she was pretty muh unresponsive with possible facial drooping and she was sent to the ER for evaluation of possible CVA and acode stroke was called and she had CT of the brain that was negative for infarct or bleed, CTA was negative as well she was placed on ASA 325 mg orally daily and Lipitor 40 mg orally daily and was admitted to the hospital for complete stroke evaluation and Neurology consultation. 05/30 patient states that she is feeling better today. MRI is currently pending. Echocardiogram reveals EF 55-60% with mild mitral regurgitation and mild tricuspid regurgitation. The patient's blood pressure has remained elevated despite medications. Repeat blood work reveals sodium 138, potassium 4.7, chloride 109, CO2 19, BUN 22 and creatinine 1.11. Iron 25, TIBC 293, iron saturation 8.53. Ferritin level CCCXLIX.9. MARIAH was positive. Vitamin B12 1025. TSH 0.872. Urinalysis was clear with blood small amount R 12 diabetes to. Triglycerides 81, cholesterol 213, LDL 154, HDL 43. Patient has been seen by neurology with recommendations to continue mirtazapine at 7.5 mg at night, multivitamin, aspirin and Lipitor. EEG has been ordered. Objective - Vital Signs Vital signs: Vital Signs Temp 97.8 F 05/30/20 11:59 Pulse 78 05/30/20 11:59 Resp 16 05/30/20 11:59 BP 184/79 05/30/20 11:59 Pulse Ox 100 05/30/20 11:59 Intake & Output 05/29/20 05/30/20 05/30/20 18:59 06:59 18:59 Output Total 0 Balance 0 Weight 57.833 kg 59.5 kg Output: Urine 0 Other: Voiding Method Bedpan Bedpan # Voids 2 - Exam Review of Systems Constitutional: Reports anorexia, Reports generalized fatigue, Reports malaise, Reports weight loss Eyes: denies blurred vision, denies bulging eye Ears: bilateral: decreased hearing Ears, nose, mouth and throat: Denies dysphagia, Denies neck lump, Denies sore throat Cardiovascular: Denies chest pain, Denies decreased exercise tolerance, Denies dyspnea on exertion, Denies lightheadedness, Denies rapid heart beat, Denies shortness of breath, Denies syncope Respiratory: Denies congestion, Denies cough, Denies cough with sputum, Denies home oxygen, Denies sleep apnea, Denies snoring, Denies wheezing Gastrointestinal: Reports loss of appetite, Denies abdominal pain, Denies bloating, Denies BRBPR, Denies excessive gas, Denies heartburn, Denies melena, Denies nausea, Denies vomiting Genitourinary: Reports nocturia, Reports urge incontinence, Reports urinary frequency, Denies dysuria Menstruation: Reports post hysterectomy, Reports postmenopausal Musculoskeletal: Reports gait dysfunction, Reports low back pain Musculoskeletal: absent: ankle pain, ankle stiffness, ankle swelling, elbow pa in, elbow stiffness, elbow swelling, foot pain, foot stiffness, foot swelling, hand pain, hand stiffness, hand swelling, hip pain, hip stiffness, hip swelling, knee pain, knee stiffness, knee swelling, shoulder pain, shoulder stiffness, shoulder swelling, wrist pain, wrist stiffness, wrist swelling Integumentary: Reports color changes (raynaud) Neurological: Reports confusion, Reports gait dysfunction, Reports weakness Psychiatric: Reports confusion, Reports depression, Denies sadness/tearfulness, Denies sleep disturbances, Denies suicidal ideation Endocrine: Denies fatigue, Denies weight change Physical examination: GEN: This is a 79-year-old female. She is resting in bed appears to be comfortable and in no acute distress. HEENT: head is atraumatic normocephalic, pupils were equal round reactive to light and accommodations extra ocular muscle movement were intact, mucous membranes of the mouth are somewhat dry. Neck: suppl, no JVP , no carotid bruit. Chest : decrease breath sounds at the bases with few ronchi no expiratory wheezes, no chest wall tenderness or intercostal retractions. Heart: first heart sound is depressed, second heart sound is normal there is ESDRAS 2/6 located at the left sternal border. Abdomen: soft non tender, non distended positive bowel sounds. Extremities: there is no edema no calf tenderness, DP + 1 bilaterally. Neurologic examination: patient is awake alert X 1, baseline dementia, muscle power 3/5 in upper and lower extremities bilaterally, deep tendon reflexes were depressed, babinski's were flexor bilaterraly, there was no pronation drift. - Labs CBC & Chem 7: 05/30/20 06:40 05/30/20 06:06 Labs: Abnormal Lab Results - Last 24 Hours (Table) 05/29/20 05/29/20 05/29/20 Range/Units 13:27 13:59 14:50 Hgb 10.7 L (11.4-16.0) gm/dL Hct 33.6 L (34.0-46.0) % Lymphocytes # 0.8 L (1.0-4.8) k/uL ESR (0-20) mm/hr Chloride (98-107) mmol/L Carbon Dioxide (22-30) mmol/L BUN 24 H (7-17) mg/dL Creatinine 1.31 H (0.52-1.04) mg/dL Glucose (74-99) mg/dL AST 48 H (14-36) U/L Lactate Dehydrogenase (313-618) U/L Creatine Kinase 1040 H* (30-135) U/L Total Protein 6.1 L (6.3-8.2) g/dL Albumin 3.1 L (3.5-5.0) g/dL Cholesterol (<200) mg/dL LDL Cholesterol, Calc (0-99) mg/dL Urine Blood Small H (Negative) Urine RBC 12 H (0-5) /hpf Hyaline Casts 8 H (0-2) /lpf Urine Mucus Rare H (None) /hpf 05/30/20 05/30/20 05/30/20 Range/Units 06:06 06:40 06:40 Hgb (11.4-16.0) gm/dL Hct (34.0-46.0) % Lymphocytes # 0.6 L (1.0-4.8) k/uL ESR 66 H (0-20) mm/hr Chloride 109 H (98-107) mmol/L Carbon Dioxide 19 L (22-30) mmol/L BUN 22 H (7-17) mg/dL Creatinine 1.11 H (0.52-1.04) mg/dL Glucose 136 H (74-99) mg/dL AST 64 H (14-36) U/L Lactate Dehydrogenase 1002 H (313-618) U/L Creatine Kinase (30-135) U/L Total Protein (6.3-8.2) g/dL Albumin (3.5-5.0) g/dL Cholesterol 213 H (<200) mg/dL LDL Cholesterol, Calc 154 H (0-99) mg/dL Urine Blood (Negative) Urine RBC (0-5) /hpf Hyaline Casts (0-2) /lpf Urine Mucus (None) /hpf Assessment and Plan Plan: 1. TIA rule out CVA. initial evaluation so far is negative we will continue with ASA 325 mg orally daily, Lipitor 40 mg orally daily, we will check echocardiogram for evaluation of LVF, we will continue with neurochecks every 2 hours for the next 24 hours, we will arrange for MRI of the brain with and without SILVESTRE, PT and OT evaluation. Consult with neurology appreciated. EEG has been ordered. 2. Hypertensive urgency. we will restart her Losartan 100/12.5 mg orally daily along with Coreg 6.25 mg orally bid. Add amlodipine 5 mg daily and hydralazine IV as needed. 3. Anemia. we will check iron studies and B12, folate levels. 4. Hypertension and hypertensive cardiovascular disease. we will continue with Losartan 100/12.5 mg orally daily along with Coreg 6.25 mg orally bid. Add amlodipine 5 mg daily and hydralazine IV as needed. 5. Hyperlipidemia. we will continue with Lipitor 40 mg orally daily. 6. Vascular dementia. we will continue wit Aricept 10 mg orally daily. 7. Acute kidney injury due to poor oral intake . we will continue IVF Normal s boris at 75 ml/h. 8. Allergic rhinitis. we will continue with flonase nasal spray. 9. Depression with poor appetite . we will restart Remeron 7.5 mg orally at bedtime. 10. GERD we will continue with Pepcid 20 mg orally daily. 11. constipation . we will continue with current bowel care. 12. History of Lupus . was taking off Plaquenil as she could not tolerate. 13. DVT prophylaxis. we will start Heparin 5000 units SC Q 12 hous. 14. GI prophylaxis. we will continue with Pepcid 20 mg orally daily. 15. Full code.' Discharge plan: Return to [facility] Impression and plan of care have been directed as dictated by the signing physician. Gloria Mayorga nurse practitioner acting as scribe for signing physician.
--- NOTE | 2020-05-31 10:46 | P.PN ---
Subjective Progress Note Date: 05/31/20 This is a 79 year old female patient of [facility] [place] with with previous medical history significant for hypertension and hypertensive cardiovascular disease, hyperlipidemia, GERD, osteoarthritis, Lupus, and vascular dementia, currently resides at [facility], and hes been doing fine till a month ago when she suddenly stopped eating and drinking and she developed an acute kidney injury was treated with IVF at [facility] and she hs recovered from that, however the patient started to have more behavioral issues and has not been eating more than 25 % of her meals and she needed a lot of encouragement to eat and drink, she seemed very withdrawn and depressed during this pandemic, she was started on mirtazepine at 7.5 mg orally daily, and then she was taken off of it due to concerns from the nursing staff, and patient was found sitting on the floor with no injury about 2 days ago, but today she was pretty muh unresponsive with possible facial drooping and she was sent to the ER for evaluation of possible CVA and acode stroke was called and she had CT of the brain that was negative for infarct or bleed, CTA was negative as well she was placed on ASA 325 mg orally daily and Lipitor 40 mg orally daily and was admitted to the hospital for complete stroke evaluation and Neurology consultation. 05/30 patient states that she is feeling better today. MRI is currently pending. Echocardiogram reveals EF 55-60% with mild mitral regurgitation and mild tricuspid regurgitation. The patient's blood pressure has remained elevated despite medications. Repeat blood work reveals sodium 138, potassium 4.7, chloride 109, CO2 19, BUN 22 and creatinine 1.11. Iron 25, TIBC 293, iron saturation 8.53. Ferritin level CCCXLIX.9. MARIAH was positive. Vitamin B12 1025. TSH 0.872. Urinalysis was clear with blood small amount R 12 diabetes to. Triglycerides 81, cholesterol 213, LDL 154, HDL 43. Patient has been seen by neurology with recommendations to continue mirtazapine at 7.5 mg at night, multivitamin, aspirin and Lipitor. EEG has been ordered. 05/31: Amlodipine 5 mg daily and hydralazine as needed were ordered for yesterday and started. Blood pressure has had some improvement with today's blood pressure at 146/64, heart rate 72, pulse ox 100% on room air, afebrile. Haptog lobin 328, sed rate 66. Free kappa high at 2.59, free lambda 2.28. MRI of the brain reveals nonspecific white matter demyelination may be due to chronic small vessel ischemia. EEG is abnormal due to mild background slowing. Myogenic and motion artifact. Findings suggestive of mild encephalopathy. Patient is followed by PT, OT and speech therapies. Plan is for return to [facility] tomorrow. Objective - Vital Signs Vital signs: Vital Signs Temp 98.2 F 05/31/20 04:00 Pulse 72 05/31/20 04:00 Resp 16 05/31/20 04:00 BP 146/64 05/31/20 04:00 Pulse Ox 100 05/31/20 04:00 Intake & Output 05/30/20 05/31/20 05/31/20 18:59 06:59 18:59 Intake Total 50 0 Output Total 0 Balance 50 0 Weight 49.5 kg Intake: Oral 50 0 Output: Urine 0 Other: Voiding Method Bedpan Bedpan # Voids 2 2 - Exam Review of Systems Constitutional: Reports anorexia, Reports generalized fatigue, Reports malaise, Reports weight loss Eyes: denies blurred vision, denies bulging eye Ears: bilateral: decreased hearing Ears, nose, mouth and throat: Denies dysphagia, Denies neck lump, Denies sore throat Cardiovascular: Denies chest pain, Denies decreased exercise tolerance, Denies dyspnea on exertion, Denies lightheadedness, Denies rapid heart beat, Denies shortness of breath, Denies syncope Respiratory: Denies congestion, Denies cough, Denies cough with sputum, Denies home oxygen, Denies sleep apnea, Denies snoring, Denies wheezing Gastrointestinal: Reports loss of appetite, Denies abdominal pain, Denies bloating, Denies BRBPR, Denies excessive gas, Denies heartburn, Denies melena, Denies nausea, Denies vomiting Genitourinary: Reports nocturia, Reports urge incontinence, Reports urinary frequency, Denies dysuria Menstruation: Reports post hysterectomy, Reports postmenopausal Musculoskeletal: Reports gait dysfunction, Reports low back pain Musculoskeletal: absent: ankle pain, ankle stiffness, ankle swelling, elbow pain, elbow stiffness, elbow swelling, foot pain, foot stiffness, foot swelling, hand pain, hand stiffness, hand swelling, hip pain, hip stiffness, hip swelling, knee pain, knee stiffness, knee swelling, shoulder pain, shoulder stiffness, shoulder swelling, wrist pain, wrist stiffness, wrist swelling Integumentary: Reports color changes (raynaud), no rashes. Neurological: Reports confusion, Reports gait dysfunction, Reports weakness Psychiatric: Reports confusion, Reports depression, Denies sadness/tearfulness, Denies sleep disturbances, Denies suicidal ideation Endocrine: Denies fatigue, Denies weight change Physical examination: GEN: This is a 79-year-old female. She is resting in bed appears to be comfortable. HEENT: head is atraumatic normocephalic, pupils were equal round reactive to light and accommodations extra ocular muscle movement were intact, mucous membra sara of the mouth are somewhat dry. Neck: suppl, no JVP , no carotid bruit. Chest : decrease breath sounds at the bases with few ronchi no expiratory wheezes, no chest wall tenderness or intercostal retractions. Heart: first heart sound is depressed, second heart sound is normal there is ESDRAS 2/6 located at the left sternal border. Abdomen: soft non tender, non distended positive bowel sounds. Extremities: there is no edema no calf tenderness, DP + 1 bilaterally. Neurologic examination: patient is awake alert X 1, baseline dementia, muscle power 3/5 in upper and lower extremities bilaterally, deep tendon reflexes were depressed, babinski's were flexor bilaterraly, there was no pronation drift. - Labs CBC & Chem 7: 05/30/20 06:40 05/30/20 06:06 Labs: Abnormal Lab Results - Last 24 Hours (Table) 05/30/20 05/30/20 05/30/20 Range/Units 06:06 06:40 06:40 Haptoglobin 328.0 H (31.2-198.0) mg/dL Iron 25 L (50-170) ug/dL % Saturation 8.53 L (12.00-45.00) Ferritin 349.9 H (10.0-291.0) ng/mL Vitamin B12 1025.0 H (200.0-944.0) pg/mL MARIAH Screen POSITIVE H (NEGATIVE) Free [place] LC, Quant 2.59 H (0.33-1.94) mg/dL Assessment and Plan Plan: 1. TIA ruled out CVA. Continue ASA 325 mg orally daily, Lipitor 40 mg orally daily. Echocardiogram, EEG, MRI of the brain as above. Consult with neurology appreciated. 2. Hypertensive urgency. we will restart her Losartan 100/12.5 mg orally daily along with Coreg 6.25 mg orally bid. Continue amlodipine 5 mg daily and hydralazine IV as needed. 3. Anemia of chronic disease. we will check iron studies and B12, folate levels. 4. Hypertension and hypertensive cardiovascular disease. we will continue with Losartan 100/12.5 mg orally daily along with Coreg 6.25 mg orally bid. Continue amlodipine 5 mg daily and hydralazine IV as needed. 5. Hyperlipidemia. we will continue with Lipitor 40 mg orally daily. 6. Vascular dementia. we will continue wit Aricept 10 mg orally daily. 7. Acute kidney injury due to poor oral intake. Decrease IV fluids to 50 ml/h. 8. Allergic rhinitis. we will continue with flonase nasal spray. 9. Depression with poor appetite . we will restart Remeron 7.5 mg orally at bedtime. 10. GERD we will continue with Pepcid 20 mg orally daily. 11. constipation . we will continue with current bowel care. 12. History of Lupus . was taking off Plaquenil as she could not tolerate. 13. DVT prophylaxis. we will start Heparin 5000 units SC Q 12 hous. 14. GI prophylaxis. we will continue with Pepcid 20 mg orally daily. 15. Full code.' Discharge plan: Return to [facility] on Thursday Impression and plan of care have been directed as dictated by the signing physician. Gloria Mayorga nurse practitioner acting as scribe for signing physician.
[2020-05-31 11:07] VITALS: BMI 18.1
[2020-05-31] MEDS: DONEPEZIL 10 MG TAB PO SCH (11:12)
[2020-05-31] MEDS: LOSARTAN 50 MG TAB PO SCH (11:12)
[2020-05-31] MEDS: amLODIPine 5 MG TAB PO SCH (11:12)
[2020-05-31] MEDS: ASPIRIN 325 MG TAB PO SCH (11:12)
[2020-05-31] MEDS: carvediloL 12.5 MG TAB PO SCH ×2 (11:12→16:48)
[2020-05-31] MEDS: LOSARTAN-HCTZ 50-12.5 MG 1 EACH TAB PO SCH (11:12)
[2020-05-31] MEDS: CHOLECALCIFEROL 1,000 UNIT TAB PO SCH (11:14)
[2020-05-31] MEDS: MULTIVITAMINS, THERA 1 EACH TAB PO SCH (11:14)
[2020-05-31] MEDS: FAMOTIDINE 20 MG TAB PO SCH (11:15)
[2020-05-31] MEDS: ATORVASTATIN 40 MG TAB PO SCH (11:15)
[2020-05-31] MEDS: SODIUM CHLORIDE 0.65% NASAL SPRAY 44 ML BTL INTRANASAL SCH ×3 (11:19→16:48)
[2020-05-31 12:02] LABS: ANA Pattern Speckled
[2020-05-31] MEDS: SODIUM CHLORIDE 0.9% 1,000 ML IV SCH ×2 (12:37→13:15)
[2020-05-31] MEDS: POTASSIUM CHLORIDE ER 10 MEQ TAB.ER.PRT PO SCH (16:48)
--- NOTE | 2020-05-31 17:56 | P.PN ---
Subjective Progress Note Date: 05/31/20 Principal diagnosis: Toxic metabolic encephalopathy Patient was seen at bedside and the son was at bedside as well she was she had her eyes closed and the what is it as responsive today compared to yesterday. Per the son the patient has been having dementia for the last 3 years and progressively getting worse in last one year. He did acknowledge that she has lupus. Objective - Vital Signs Vital signs: Vital Signs Temp 98.3 F 05/31/20 10:45 Pulse 65 05/31/20 10:45 Resp 16 05/31/20 12:00 BP 174/72 05/31/20 10:45 Pulse Ox 100 05/31/20 10:45 Intake & Output 05/30/20 05/31/20 05/31/20 18:59 06:59 18:59 Intake Total 50 120 Output Total 0 1 Balance 50 119 Weight 49.5 kg 49.5 kg Intake: Oral 50 120 Output: Urine 0 1 Other: Voiding Method Bedpan Bedpan Bedpan # Voids 2 2 - Exam GENERAL: The patient is lying in bed and is not in acute distress.t. NEUROLOGICAL: Limited because of patient condition. Higher mental function: The patient is drowsy and not as talkative as yesterday. Only followed one simple commands of showing thumbs up. Motor: Gait is defered. The strength is able to move able to move both upper extremities above gravity. Sensation: Unable to assess Reflexes (right/left): 1+ throughout. Plantars are downgoing bilaterally. - Labs CBC & Chem 7: 05/30/20 06:40 05/30/20 06:06 Labs: Abnormal Lab Results - Last 24 Hours (Table) 05/30/20 05/30/20 05/30/20 Range/Units 06:06 06:40 06:40 Haptoglobin 328.0 H (31.2-198.0) mg/dL Iron 25 L (50-170) ug/dL % Saturation 8.53 L (12.00-45.00) Ferritin 349.9 H (10.0-291.0) ng/mL Vitamin B12 1025.0 H (200.0-944.0) pg/mL MARIAH Screen POSITIVE H (NEGATIVE) Free [place] LC, Quant 2.59 H (0.33-1.94) mg/dL Assessment and Plan Assessment: This is a 79-year-old female with medical history of vascular dementia, lupus, rheumatoid arthritis and ADELA who presented to the emergency department on 05/29/2020 for reported altered mental status. She was transferred from extended care facility. Per medical documentation it's noted that the EMS noted that the patient was normal at the morning of presentation. Last known normal was 10:30am. Then the patient's nurse went in the room to give the patient's medication around 1:00 and was found the patient to be altered mental status. They also felt that the patient had weakness on the left side as well as a facial droop. Per the patient's daughter she stated that the patient has been significantly declined over the past month. She had acute kidney injury in the past 1 week. She stopped taking anything oral intake. She stopped ambulating on her own and had no fevers. Patient does not have history of CVA. Toxic-metabolic Encephalopathy ADELA--improving Elevated CPK History of vascular dementia (per son has dementia for past three years and worsening in past one year) Lupus Plan: CT of the head that was done on 05/29/2020 which was reported as no acute abnormality. Nonspecific white matter demyelination. CTA of the head and neck was reported as no significant stenosis in the common or internal carotid arteries bilaterally. No significant stenosis or aneurysm at the level of the k[place]ia of [place]. On presentation creatinine kinase was 1040. Lactate dehydrogenase was 1002. Total protein is 6.1, albumin is 3.1. -EEG. Mild encephalopathy. No focal slowing, epileptiform dishcarges or seizure captured. MRI Brain: Nonspecific white matter demylination consistent of small vessel disease. Regarding the patient's elevated CPK and her an acute kidney injury we'll defer the management to the primary team. The patient is currently on IV fluids. Regarding patient's vascular dementia looks like she is on Aricept 10 mg daily. Per son has dementia for past 3 years and worsening in past one year. Has more anterograde memory issues. She is on mirtazapine as well 7.5 mg at night She is on multiple vitamins daily She is on aspirin 325 as well as Lipitor 40 mg daily Ted Henriquez M.D. Neuro-Hospitalist Time with Patient: Less than 30
[2020-05-31] MEDS: MIRTAZAPINE 15 MG TAB PO SCH (21:19)
[2020-06-01] MEDS: HEPARIN SODIUM,PORCINE 5,000 UNIT/ML 1 ML VIAL SQ SCH ×2 (06:39→18:14)
[2020-06-01] MEDS: METOCLOPRAMIDE 5 MG TAB PO SCH ×3 (06:39→18:14)
[2020-06-01] MEDS: SODIUM CHLORIDE 0.9% 1,000 ML IV SCH (06:47)
[2020-06-01 08:22] LABS: Hypochromasia Slight; MCH 25.9 pg (25.0-35.0); MCHC 31.5 g/dL (31.0-37.0); MCV 82.3 fL (80.0-100.0); Mean Platelet Volume 7.8; Platelet Count 210 k/uL (150-450); RBC 4.25 m/uL (3.80-5.40); RDW 14.8 % (11.5-15.5); WBC 8.8 k/uL (3.8-10.6)
--- NOTE | 2020-06-01 10:15 | P.DS ---
<Gloria Mayorga A - Last Filed: 06/01/20 14:23> Providers Expected date of discharge: 06/02/20 Hospital Course: This is a 79 year old female patient of mine with with previous medical history significant for hypertension and hypertensive cardiovascular disease, hyperlipidemia, GERD, osteoarthritis, Lupus, and vascular dementia, currently resides at [facility], and hes been doing fine till a month ago when she suddenly stopped eating and drinking and she developed an acute kidney injury was treated with IVF at [facility] and she hs recovered from that, however the patient started to have more behavioral issues and has not been eating more than 25 % of her meals and she needed a lot of encouragement to eat and drink, she seemed very withdrawn and depressed during this pandemic, she was started on mirtazepine at 7.5 mg orally daily, and then she was taken off of it due to concerns from the nursing staff, and patient was found sitting on the floor with no injury about 2 days ago, but today she was pretty muh unresponsive with possible facial drooping and she was sent to the ER for evaluation of possible CVA and acode stroke was called and she had CT of the brain that was negative for infarct or bleed, CTA was negative as well she was placed on ASA 325 mg orally daily and Lipitor 40 mg orally daily and was admitted to the hospital for complete stroke evaluation and Neurology consultation. 05/30 patient states that she is feeling better today. MRI is currently pending. Echocardiogram reveals EF 55-60% with mild mitral regurgitation and mild tricuspid regurgitation. The patient's blood pressure has remained elevated despite medications. Repeat blood work reveals sodium 138, potassium 4.7, chloride 109, CO2 19, BUN 22 and creatinine 1.11. Iron 25, TIBC 293, iron saturation 8.53. Ferritin level CCCXLIX.9. MARIAH was positive. Vitamin B12 1025. TSH 0.872. Urinalysis was clear with blood small amount R 12 diabetes to. Triglycerides 81, cholesterol 213, LDL 154, HDL 43. Patient has been seen by neurology with recommendations to continue mirtazapine at 7.5 mg at night, multivitamin, aspirin and Lipitor. EEG has been ordered. 05/31: Amlodipine 5 mg daily and hydralazine as needed were ordered for yesterday and started. Blood pressure has had some improvement with today's blood pressure at 146/64, heart rate 72, pulse ox 100% on room air, afebrile. Haptoglobin 328, sed rate 66. Free kappa high at 2.59, free lambda 2.28. MRI of the brain reveals nonspecific white matter demyelination may be due to chronic small vessel ischemia. EEG is abnormal due to mild background slowing. Myogenic and motion artifact. Findings suggestive of mild encephalopathy. Patient is followed by PT, OT and speech therapies. Plan is for return to [facility] tomorrow. 06/01: Patient has been seen and followed during his hospitalization by neurology . CVA has been ruled out. Patient has been afebrile, heart rate 83, blood pressure 146/83, pulse ox 100% on room air. Repeat hemoglobin 11.0. Patient has been evaluated by speech therapy with recommendations for a ground diet and thin liquids with direct 1:1 supervision due to altered mental status. Patient has been eating very little and requires feeding. She did poorly with PT/OT. Discharge to [facility] will be held and monitor over night. Discharge diagnoses: 1. Toxic metabolic encephalopathy, ruled out CVA. 2. Hypertensive urgency. 3. Anemia of chronic disease. 4. Hypertension and hypertensive cardiovascular disease. 5. Hyperlipidemia. 6. Vascular dementia, worsening. 7. Acute kidney injury due to poor oral intake. 8. Allergic rhinitis. 9. Recurrent depression with poor appetite. 10. GERD. 11. Constipation. 12. History of Lupus. 13. COVID-19 infection not present. Discharge plan: Return to [facility] under the care of Dr. Mahmood. Impression and plan of care have been directed as dictated by the signing physician. Gloria Mayorga nurse practitioner acting as scribe for signing physician. Patient Condition at Discharge: Good Plan - Discharge Summary Discharge Rx Participant: No New Discharge Prescriptions: New Aspirin 325 mg PO DAILY tab carvediloL [Coreg*] 12.5 mg PO BID@0800,1700 tab amLODIPine [Norvasc] 5 mg PO DAILY tab Atorvastatin [Lipitor] 40 mg PO DAILY tab Continue Na Phos,M-B/Na Phos,Di-Ba [Fleet Adult] 133 ml RECTAL ONCE PRN PRN Reason: Constipation bisacodyL [Dulcolax] 10 mg RECTAL DAILY PRN PRN Reason: Constipation Multivitamins, Thera [Multivitamin (formulary)] 1 tab PO DAILY@0800 Ensure Clear 1 can PO BID Donepezil [Aricept] 10 mg PO DAILY@0800 Magnesium Hydroxide [Milk of Magnesia Concentrate] 7,200 mg PO Q48H PRN PRN Reason: Constipation Sodium Chloride [Saline Nasal [place]] 2 spray EA NOSTRIL TID@0800,1200,1700 Cholecalciferol [Vitamin D3 (25 Mcg = 1000 Iu)] 2,000 unit PO DAILY@0800 Metoclopramide HCl [Reglan] 5 mg PO AC-TID Famotidine [Pepcid] 20 mg PO DAILY@0800 Losartan/Hydrochlorothiazide [Losartan-Hctz 100-12.5 mg Tab] 1 tab PO DAILY@0800 Loperamide HCl [Imodium A-D] 2 - 4 mg PO TID PRN MDD 4 TABS PRN Reason: Diarrhea Potassium Chloride [Klor-Con 10] 10 meq PO DAILY@1700 guaiFENesin [guaiFENesin Oral Solution] 200 mg PO Q4H PRN PRN Reason: Cough Calcium Carbonate [Tums] 500 mg PO BID PRN PRN Reason: Indigestion Menthol [Biofreeze] 1 applic TOPICAL Q8H PRN PRN Reason: Pain Acetaminophen Tab [Tylenol] 650 mg PO Q4H PRN PRN Reason: Pain Or Fever > 100.5 Discontinued carvediloL [Coreg] 6.25 mg PO BID@0800,1700 Mirtazapine 7.5 mg PO HS@2100 Discharge Medication List Donepezil [Aricept] 10 mg PO DAILY@0800 04/08/18 [History] Ensure Clear 1 can PO BID 04/08/18 [History] Magnesium Hydroxide [Milk of Magnesia Concentrate] 7,200 mg PO Q48H PRN 04/08/18 [History] Multivitamins, Thera [Multivitamin (formulary)] 1 tab PO DAILY@0800 04/08/18 [History] Na Phos,M-B/Na Phos,Di-Ba [Fleet Adult] 133 ml RECTAL ONCE PRN 04/08/18 [History] bisacodyL [Dulcolax] 10 mg RECTAL DAILY PRN 04/08/18 [History] Acetaminophen Tab [Tylenol] 650 mg PO Q4H PRN 05/29/20 [History] Calcium Carbonate [Tums] 500 mg PO BID PRN 05/29/20 [History] Cholecalciferol [Vitamin D3 (25 Mcg = 1000 Iu)] 2,000 unit PO DAILY@0805/29/20 [History] Famotidine [Pepcid] 20 mg PO DAILY@0805/29/20 [History] Loperamide HCl [Imodium A-D] 2 - 4 mg PO TID PRN MDD 4 TABS 05/29/20 [History] Losartan/Hydrochlorothiazide [Losartan-Hctz 100-12.5 mg Tab] 1 tab PO DAILY@0805/29/20 [History] Menthol [Biofreeze] 1 applic TOPICAL Q8H PRN 05/29/20 [History] Metoclopramide HCl [Reglan] 5 mg PO AC-TID 05/29/20 [History] Potassium Chloride [Klor-Con 10] 10 meq PO DAILY@1700 05/29/20 [History] Sodium Chloride [Saline Nasal [place]] 2 spray EA NOSTRIL TID@0800,1200,1700 05/29/20 [History] guaiFENesin [guaiFENesin Oral Solution] 200 mg PO Q4H PRN 05/29/20 [History] Aspirin 325 mg PO DAILY tab 06/01/20 [Rx] Atorvastatin [Lipitor] 40 mg PO DAILY tab 06/01/20 [Rx] amLODIPine [Norvasc] 5 mg PO DAILY tab 06/01/20 [Rx] carvediloL [Coreg*] 12.5 mg PO BID@0800,1700 tab 06/01/20 [Rx] Follow up Appointment(s)/Referral(s): Nicho Mahmood MD [Primary Care Provider] - 1 Week (at [facility]) Discharge Disposition: TRANSFER TO SNF/ECF <Nicho Mahmood - Last Filed: 06/02/20 09:39> Providers Date of admission: 05/29/20 15:43 Attending physician: Nicho Mahmood Consults: 05/29/20 15:52 Consult Physician Urgent Consulting Provider: Ted Henriquez Consult Reason/Comments: acute encephalopathy, suspected tia/cva Do you want consulting provider notified?: Yes Primary care physician: Nicho Mahmood
[2020-06-01 11:46] LABS: Albumin 3.6 g/dL (3.5-5.0); Calcium 9.5 mg/dL (8.4-10.2); Total Bilirubin 0.5 mg/dL (0.2-1.3); Total Protein 7.1 g/dL (6.3-8.2)
[2020-06-01] MEDS: LOSARTAN-HCTZ 50-12.5 MG 1 EACH TAB PO SCH (12:01)
[2020-06-01] MEDS: carvediloL 12.5 MG TAB PO SCH ×2 (12:01→18:14)
[2020-06-01] MEDS: FAMOTIDINE 20 MG TAB PO SCH (12:01)
[2020-06-01] MEDS: LOSARTAN 50 MG TAB PO SCH (12:01)
[2020-06-01] MEDS: CHOLECALCIFEROL 1,000 UNIT TAB PO SCH (12:01)
[2020-06-01] MEDS: DONEPEZIL 10 MG TAB PO SCH (12:01)
[2020-06-01] MEDS: ASPIRIN 325 MG TAB PO SCH (12:02)
[2020-06-01] MEDS: amLODIPine 5 MG TAB PO SCH (12:02)
[2020-06-01] MEDS: MULTIVITAMINS, THERA 1 EACH TAB PO SCH (12:02)
[2020-06-01] MEDS: SODIUM CHLORIDE 0.65% NASAL SPRAY 44 ML BTL INTRANASAL SCH ×2 (12:02→18:14)
[2020-06-01] MEDS: ATORVASTATIN 40 MG TAB PO SCH (12:02)
[2020-06-01 12:23] LABS: Potassium 4.8 mmol/L (3.5-5.1)
--- NOTE | 2020-06-01 14:25 | P.PN ---
Subjective Progress Note Date: 06/01/20 This is a 79 year old female patient of [facility] with with previous medical history significant for hypertension and hypertensive cardiovascular disease, hyperlipidemia, GERD, osteoarthritis, Lupus, and vascular dementia, currently resides at [facility], and hes been doing fine till a month ago when she suddenly stopped eating and drinking and she developed an acute kidney injury was treated with IVF at [facility] and she hs recovered from that, however the patient started to have more behavioral issues and has not been eating more than 25 % of her meals and she needed a lot of encouragement to eat and drink, she seemed very withdrawn and depressed during this pandemic, she was started on mirtazepine at 7.5 mg orally daily, and then she was taken off of it due to concerns from the nursing staff, and patient was found sitting on the floor with no injury about 2 days ago, but today she was pretty muh unresponsive with possible facial drooping and she was sent to the ER for evaluation of possible CVA and acode stroke was called and she had CT of the brain that was negative for infarct or bleed, CTA was negative as well she was placed on ASA 325 mg orally daily and Lipitor 40 mg orally daily and was admitted to the hospital for complete stroke evaluation and Neurology consultation. 05/30 patient states that she is feeling better today. MRI is currently pending. Echocardiogram reveals EF 55-60% with mild mitral regurgitation and mild tricuspid regurgitation. The patient's blood pressure has remained elevated despite medications. Repeat blood work reveals sodium 138, potassium 4.7, chloride 109, CO2 19, BUN 22 and creatinine 1.11. Iron 25, TIBC 293, iron saturation 8.53. Ferritin level CCCXLIX.9. MARIAH was positive. Vitamin B12 1025. TSH 0.872. Urinalysis was clear with blood small amount R 12 diabetes to. Triglycerides 81, cholesterol 213, LDL 154, HDL 43. Patient has been seen by neurology with recommendations to continue mirtazapine at 7.5 mg at night, multivitamin, aspirin and Lipitor. EEG has been ordered. 05/31: Amlodipine 5 mg daily and hydralazine as needed were ordered for yesterday and started. Blood pressure has had some improvement with today's blood pressure at 146/64, heart rate 72, pulse ox 100% on room air, afebrile. Haptog lobin 328, sed rate 66. Free kappa high at 2.59, free lambda 2.28. MRI of the brain reveals nonspecific white matter demyelination may be due to chronic small vessel ischemia. EEG is abnormal due to mild background slowing. Myogenic and motion artifact. Findings suggestive of mild encephalopathy. Patient is followed by PT, OT and speech therapies. Plan is for return to [facility] tomorrow. 06/01: Patient has been seen and followed during his hospitalization by neurology. CVA has been ruled out. Patient has been afebrile, heart rate 83, blood pressure 146/83, pulse ox 100% on room air. Repeat hemoglobin 11.0. Patient has been evaluated by speech therapy with recommendations for a ground diet and thin liquids with direct 1:1 supervision due to altered mental status. Patient has been eating very little and requires feeding. She did poorly with PT/OT. Discharge to [facility] will be held and monitor over night. Objective - Vital Signs Vital signs: Vital Signs Temp 98.2 F 06/01/20 11:50 Pulse 68 06/01/20 11:50 Resp 18 06/01/20 11:50 BP 140/77 06/01/20 11:50 Pulse Ox 92 L 06/01/20 11:50 Intake & Output 05/31/20 06/01/20 06/01/20 18:59 06:59 18:59 Intake Total 120 Output Total 1 Balance 119 Weight 49.5 kg 50 kg Intake: Oral 120 Output: Urine 1 Other: Voiding Method Bedpan Bedpan Bedpan Diaper Diaper Diaper # Voids 1 # Bowel Movements 1 - Exam Review of Systems Constitutional: Reports anorexia, Reports generalized fatigue, Reports malaise, Reports weight loss Eyes: denies blurred vision, denies bulging eye Ears: bilateral: decreased hearing Ears, nose, mouth and throat: Denies dysphagia, Denies neck lump, Denies sore throat, no cough Cardiovascular: Denies chest pain, Denies decreased exercise tolerance, Denies dyspnea on exertion, Denies lightheadedness, Denies rapid heart beat, Denies shortness of breath, Denies syncope Respiratory: Denies congestion, Denies cough, Denies cough with sputum, Denies home oxygen, Denies sleep apnea, Denies snoring, Denies wheezing Gastrointestinal: Reports loss of appetite, Denies abdominal pain, Denies bloating, Denies BRBPR, Denies excessive gas, Denies heartburn, Denies melena, Denies nausea, Denies vomiting Genitourinary: Reports nocturia, Reports urge incontinence, Reports urinary frequency, Denies dysuria Menstruation: Reports post hysterectomy, Reports postmenopausal Musculoskeletal: Reports gait dysfunction, Reports low back pain Musculoskeletal: absent: ankle pain, ankle stiffness, ankle swelling, elbow pain, elbow stiffness, elbow swelling, foot pain, foot stiffness, foot swelling, hand pain, hand stiffness, hand swelling, hip pain, hip stiffness, hip swelling, knee pain, knee stiffness, knee swelling, shoulder pain, shoulder stiffness, shoulder swelling, wrist pain, wrist stiffness, wrist swelling Integumentary: Reports color changes (raynaud), no rashes. Neurological: Reports confusion, Reports gait dysfunction, Reports weakness Psychiatric: Reports confusion, Reports depression, Denies sadness/tearfulness, Denies sleep disturbances, Denies suicidal ideation Endocrine: Denies fatigue, Denies weight change Physical examination: GEN: This is a 79-year-old female. She is resting in bed appears to be comfortable. Daughter at bedside. HEENT: head is atraumatic normocephalic, pupils were equal round reactive to light and accommodations extra ocular muscle movement were intact, mucous membranes of the mouth are somewhat dry. Neck: suppl, no JVP , no carotid bruit. Chest : decrease breath sounds at the bases with few ronchi no expiratory wheezes, no chest wall tenderness or intercostal retractions. Heart: first heart sound is depressed, second heart sound is normal there is ESDRAS 2/6 located at the left sternal border. Abdomen: soft non tender, non distended positive bowel sounds. Extremities: there is no edema no calf tenderness, DP + 1 bilaterally. Neurologic examination: patient is awake alert X 1, baseline dementia, muscle power 3/5 in upper and lower extremities bilaterally, deep tendon reflexes were depressed, babinski's were flexor bilaterraly, there was no pronation drift. - Labs CBC & Chem 7: 06/01/20 07:34 06/01/20 09:53 Labs: Abnormal Lab Results - Last 24 Hours (Table) 06/01/20 06/01/20 Range/Units 07:34 09:53 Hgb 11.0 L (11.4-16.0) gm/dL Chloride 111 H (98-107) mmol/L BUN 21 H (7-17) mg/dL Creatinine 1.05 H (0.52-1.04) mg/dL AST 47 H (14-36) U/L Assessment and Plan Plan: 1. TIA ruled out CVA. Continue ASA 325 mg orally daily, Lipitor 40 mg orally daily. Echocardiogram, EEG, MRI of the brain as above. Consult with neurology appreciated. 2. Hypertensive urgency. we will restart her Losartan 100/12.5 mg orally daily along with Coreg 6.25 mg orally bid. Continue amlodipine 5 mg daily and hydralazine IV as needed. 3. Anemia of chronic disease. we will check iron studies and B12, folate levels. 4. Hypertension and hypertensive cardiovascular disease. we will continue with Losartan 100/12.5 mg orally daily along with Coreg 6.25 mg orally bid. Continue amlodipine 5 mg daily and hydralazine IV as needed. 5. Hyperlipidemia. we will continue with Lipitor 40 mg orally daily. 6. Vascular dementia. we will continue wit Aricept 10 mg orally daily. 7. Acute kidney injury due to poor oral intake. Decrease IV fluids to 50 ml/h. 8. Allergic rhinitis. we will continue with flonase nasal spray. 9. Depression with poor appetite . Discontinue Remeron. 10. GERD we will continue with Pepcid 20 mg orally daily. 11. constipation . we will continue with current bowel care. 12. History of Lupus . was taking off Plaquenil as she could not tolerate. 13. DVT prophylaxis. we will start Heparin 5000 units SC Q 12 hous. 14. GI prophylaxis. we will continue with Pepcid 20 mg orally daily. 15. Full code.' Discharge plan: Return to [facility] on Thursday Impression and plan of care have been directed as dictated by the signing physician. Gloria Mayorga nurse practitioner acting as scribe for signing physician.
--- NOTE | 2020-06-01 15:12 | CDI ---
Documentation Clarification Form Date: 06/01/2020 02:52:28 PM From: Darline Amos CCS, CCDS Admit Date: 05/29/2020 03:43:00 PM Patient Name: Venkata Basilio Visit Number: [id number] Discharge Date: ATTENTION: The Clinical Documentation Specialists (CDI) and [facility] Coding Staff appreciate your assistance in clarifying documentation. Please respond to the clarification below the line at the bottom and electronically sign. The CDI & [facility] Coding staff will review the response and follow-up if needed. Please note: Queries are made part of the Legal Health Record. If you have any questions, please contact the author of this message via ITS. Dr. Micah Mccabe: Per the 05/29 ED Note: "She has had very poor by mouth intake and has stopped ambulating on her own." Per the 06/01 Discharge Summary: "Acute kidney injury due to poor oral intake." Per the 05/30 Neurology Consult: "She has had very poor by mouth intake and has stopped ambulating on her own." History/Risk Factors: Vascular Dementia, Lupus, Rheumatoid Arthritis, ADELA. Clinical Indicators: Presented to the ED on 05/30 via EMS from [facility] with altered mental status. Noted to have left side weakness & facial droop. Per the patient's daughter, she has declined over the past month. Has stopped taking anything oral, stopped ambulating. Admitted with Toxic Metabolic Encephalopathy & possible TIA, CVA has been ruled out & ADELA. VS: T 98.1, P 56*, R 18, BP 125/78, PO 96 RA-100 2Lnc. Current BMI: 18.3* Labs: Hgb 10.7*, BUN 24^, Cr 1.31^, AST 48^, Creatinine Kinase 1040^^, Total Protein 6.1*, Albumin 3.1*. Nutritional Assessment: Diet consumed: 50% of meals with total assistance, BMI <19, Poor nutrition intake, needs 1:1 supervision, Weight 49.5 (bed scale, Height: 5 ft 5 in. Underweight. @ 87% of ideal body weight. Treatment: IV fluid rate 75, Ensure Enlive TID 350 Kcal/serving, 20 gm protein. Speech Therapy Consult: "Patient has been evaluated by speech therapy with recommendations for a ground diet and thin liquids with direct 1:1 supervision due to altered mental status." In your professional opinion, can you please clarify if these findings signify one of the following conditions? Mild Protein-Calorie Malnutrition xx Moderate Protein-Calorie Malnutrition Other condition, please specify Unable to determine (Last Revision: April 2019) MTDD
[2020-06-01] MEDS: POTASSIUM CHLORIDE ER 10 MEQ TAB.ER.PRT PO SCH (18:14)
[2020-06-01] MEDS: MIRTAZAPINE 15 MG TAB PO SCH (20:44)
[2020-06-02 00:09] VITALS: RESP 16
[2020-06-02] MEDS: SODIUM CHLORIDE 0.9% 1,000 ML IV SCH (05:07)
[2020-06-02] MEDS: HEPARIN SODIUM,PORCINE 5,000 UNIT/ML 1 ML VIAL SQ SCH (06:10)
[2020-06-02 09:34] VITALS: PULSE 78; TEMP 98.4
[2020-06-02] MEDS: LOSARTAN 50 MG TAB PO SCH (09:51)
[2020-06-02] MEDS: carvediloL 12.5 MG TAB PO SCH (09:51)
[2020-06-02] MEDS: DONEPEZIL 10 MG TAB PO SCH (09:51)
[2020-06-02] MEDS: LOSARTAN-HCTZ 50-12.5 MG 1 EACH TAB PO SCH (09:51)
[2020-06-02] MEDS: ATORVASTATIN 40 MG TAB PO SCH (09:52)
[2020-06-02] MEDS: amLODIPine 5 MG TAB PO SCH (09:52)
[2020-06-02] MEDS: CHOLECALCIFEROL 1,000 UNIT TAB PO SCH (09:52)
[2020-06-02] MEDS: MULTIVITAMINS, THERA 1 EACH TAB PO SCH (09:52)
[2020-06-02] MEDS: SODIUM CHLORIDE 0.65% NASAL SPRAY 44 ML BTL INTRANASAL SCH ×2 (09:52→12:28)
[2020-06-02] MEDS: FAMOTIDINE 20 MG TAB PO SCH (09:52)
[2020-06-02] MEDS: ASPIRIN 325 MG TAB PO SCH (09:52)
[2020-06-02] MEDS: METOCLOPRAMIDE 5 MG TAB PO SCH ×2 (09:52→12:33)
[2020-06-02 12:22] VITALS: BP 114/66
[2020-06-06 14:14] LABS: Glucose,Whole Blood 76 mg/dL (75-99)
== END 2020-06-02 12:43 | DRG 92 ==
LOC: EC 13:09 → 3SCARD 15:43
PROVIDERS: ADMIT Internal Medicine; ATTEND Internal Medicine
DX: G92 Toxic encephalopathy (principal); F33.9 Major depressive disorder, recurrent, unspecified; N17.9 Acute kidney failure, unspecified; E44.0 Moderate protein-calorie malnutrition; E78.5 Hyperlipidemia, unspecified; F41.9 Anxiety disorder, unspecified; K21.9 Gastro-esophageal reflux disease without esophagitis; M06.9 Rheumatoid arthritis, unspecified; R29.810 Facial weakness; M19.90 Unspecified osteoarthritis, unspecified site; I16.0 Hypertensive urgency; I45.10 Unspecified right bundle-branch block; E11.9 Type 2 diabetes mellitus without complications; I11.9 Hypertensive heart disease without heart failure; Z20.828 Contact with and (suspected) exposure to other viral communicable diseases; I08.1 Rheumatic disorders of both mitral and tricuspid valves; F01.50 Vascular dementia, unspecified severity, without behavioral disturbance, psychotic disturbance, mood disturbance, and anxiety; J30.9 Allergic rhinitis, unspecified; K59.00 Constipation, unspecified; M32.9 Systemic lupus erythematosus, unspecified; D63.8 Anemia in other chronic diseases classified elsewhere; Z79.82 Long term (current) use of aspirin; Z88.8 Allergy status to other drugs, medicaments and biological substances; Z79.899 Other long term (current) drug therapy; Z88.1 Allergy status to other antibiotic agents; Z91.041 Radiographic dye allergy status; Z88.0 Allergy status to penicillin; Z91.013 Allergy to seafood; Z82.3 Family history of stroke; Z90.710 Acquired absence of both cervix and uterus; Z98.890 Other specified postprocedural states; Z82.49 Family history of ischemic heart disease and other diseases of the circulatory system; Z80.9 Family history of malignant neoplasm, unspecified; Z84.1 Family history of disorders of kidney and ureter; Z82.0 Family history of epilepsy and other diseases of the nervous system
CPT/HCPCS: 36415; 70450; 70496; 70498; 70551; 71046; 80053; 80061; 81001; 82140; 82550; 82607; 82728; 82746; 83010; 83540; 83550; 83605; 83615; 83883; 84443; 84484; 85025; 85027; 85045; 85610; 85652; 85730; 86038; 86039; 87635; 93005; 93306; 95816; 96361; 96374; 96375; 99291